=== PATIENT | female | born 1980 | race Caucasian/White ===

== ENCOUNTER 2016-08-19 06:38 | Inpatient (IN) | payer OTHER ==
[2016-08-19] MEDS ORDERED: OXYTOCIN/NORMAL SALINE 1,000 ML IV PRN ×2 (06:42→15:18)
[2016-08-19] MEDS ORDERED: RINGERS SOLUTION,LACTATED 300 ML IV ONE (06:42)
[2016-08-19 07:20] LABS: ABSOLUTE EOSINOPHILS # (AUTO) 0.1 10^3/uL (0.0-0.6); ABSOLUTE LYMPHOCYTES (AUTO) 1.3 10^3/uL (0.5-4.7); ABSOLUTE MONOCYTES (AUTO) 0.5 10^3/uL (0.1-1.4); ABSOLUTE NEUT (AUTO) 7.5 10^3/uL (1.7-8.2); BASOPHILS % (AUTO) 0.3 % (0-2); HEMATOCRIT 38.5 % (36.0-47.0); HGB HCT DIFFERENCE 0.5; LYMPHOCYTES % (AUTO) 13.5 % (13-45); MEAN CORPUSCULAR HEMOGLOBIN 31.3 pg (27.0-33.4); MEAN CORPUSCULAR HGB CONC 33.8 g/dL (32.0-36.0); MEAN CORPUSCULAR VOLUME 93 fl (80-97); MONOCYTES % (AUTO) 4.9 % (3-13); RED BLOOD COUNT 4.16 10^6/uL (3.72-5.28); RED CELL DISTRIBUTION WIDTH 14.4 % (11.5-14.0); SEGMENTED NEUTROPHILS % (AUTO) 80.3 % (42-78); WHITE BLOOD COUNT 9.3 10^3/uL (4.0-10.5)
[2016-08-19 07:40] LABS: ALANINE AMINOTRANSFERASE 25 U/L (9-52); ALBUMIN 3.4 g/dL (3.5-5.0); ALKALINE PHOSPHATASE 121 U/L (38-126); ANION GAP 10 (5-19); ASPARTATE AMINO TRANSFERASE 26 U/L (14-36); BILIRUBIN,TOTAL 0.9 mg/dL (0.2-1.3); BLOOD UREA NITROGEN 9 mg/dL (7-20); CALCIUM 9.7 mg/dL (8.4-10.2); CARBON DIOXIDE 25 mmol/L (22-30); CHLORIDE 104 mmol/L (98-107); CREATININE RESULT 0.74 mg/dL (0.52-1.25); GLUCOSE 90 mg/dL (75-110); LDH 358 U/L (313-618); POTASSIUM 3.9 mmol/L (3.6-5.0); SODIUM 138.5 mmol/L (137-145); TOTAL PROTEIN 5.8 g/dL (6.3-8.2); URIC ACID 3.6 mg/dL (2.5-7.0)
[2016-08-19] MEDS ORDERED: OXYTOCIN/NORMAL SALINE 20 UNIT/1,000 ML RTUINJ ONE (07:59)
--- NOTE | 2016-08-19 08:01 | L&D Flow Sheet ---
LD Flowsheet Datetime Report Generated by CPN: 08/19/2016 08:00 Datetime: 08/19/2016 07:45 Patient Care IV/Blood Work: IV Started; IV Bolus Started ([place] [place], [facility]) Datetime: 08/19/2016 07:44 Vaginal Exam Dilatation (cm): 2.5 (Kym Camp, [facility]) Effacement (%): 50 (Kym Camp, [facility]) Station: -1 (Kym Camp, [facility]) Exam by: Camp, S (Kym Camp, [facility]) Vaginal Bleeding: None (Kym Camp, [facility]) Cervix, Consistency: Soft (Kym Camp, [facility]) Cervix, Position: Midposition (Kym Camp, [facility]) Lie 'A': Unable to Assess (Kym [facility], [facility]) Datetime: 08/19/2016 07:31 Vital Signs NBP Sys/Radha/Mean (mmHg): 123 (QS system process) : 72 (QS system process) : 93 (QS system process) Pulse: 102 (QS system process) Datetime: 08/19/2016 07:24 Pulse: 97 (QS system process) SpO2 (%): 99 (QS system process) Datetime: 08/19/2016 07:22 Vital Signs NBP Sys/Radha/Mean (mmHg): 122 (QS system process) : 69 (QS system process) : 90 (QS system process) Pulse: 93 (QS system process) Assessment A Comments: maternal heart rate tracing, pulse ox applied and u/s adjusted (Kym [facility], [facility])
[2016-08-19 08:33] LABS: APPEARANCE,URINE CLOUDY; BILIRUBIN,URINE NEGATIVE (NEGATIVE); GLUCOSE, URINE 50 mg/dL (NEGATIVE); KETONES,URINE NEGATIVE (NEGATIVE); LEUKOCYTE ESTERASE,URINE TRACE (NEGATIVE); NITRITE,URINE NEGATIVE (NEGATIVE); PROTEIN,URINE NEGATIVE (NEGATIVE); URINE SPECIFIC GRAVITY 1.011; UROBILINOGEN,URINE NEGATIVE mg/dL (<2.0)
[2016-08-19 08:50] LABS: URINE BARBITURATES SCREEN NEGATIVE; URINE METHADONE SCREEN NEGATIVE; URINE OPIATES LOW NEGATIVE; URINE PHENCYCLIDINE SCREEN NEGATIVE
[2016-08-19] MEDS: RINGERS SOLUTION,LACTATED 1,000 ML IV PRN ×3 (09:42→13:11)
--- NOTE | 2016-08-19 10:00 | L&D Flow Sheet ---
LD Flowsheet Datetime Report Generated by CPN: 08/19/2016 10:00 Datetime: 08/19/2016 09:45 Pitocin (milliunit): Pitocin Increased to (milliunits) @ 14 ([facility], [facility]) Datetime: 08/19/2016 09:42 IV/Blood Work: New IV Bag Hung; IV Bag Number @ 2 (Kym Camp, [facility]) Patient Care Comments: LR 1000 ml @ 125ml/hr (Kym Camp, [facility]) Datetime: 08/19/2016 09:32 NBP Sys/Radha/Mean (mmHg): 140 (QS system process) : 76 (QS system process) : 102 (QS system process) Pulse: 81 (QS system process) Respirations: 16 ([facility]ym [facility], [facility]) LaborFlag: Labor (QS system process) Datetime: 08/19/2016 09:30 Monitor Mode: External; Palpation (Kym [facility], [facility]) Frequency (min): 4-5 ([facility]ym [facility], [facility]) Quality: Mild (Kym [facility], [facility]) Duration (sec): 50-70 (Kym Camp, [facility]) Duration Criteria: Less than Two 120 Second Contractions (Kym Camp, [facility]) Pattern: Normal: <= 5 Contractions in 10 Minutes (Kym [facility], [facility]) Resting Tone (Palpate): Relaxed (Kym [facility], [facility]) Monitor Mode: External US; Auscultation ([facility]ym [facility], [facility]) FHR Baseline Rate : 140 ([facility]ym [facility], [facility]) FHR Baseline Changes: No Baseline Change ([facility]ym [facility], [facility]) Variability: Moderate 6-25 bpm (Kym [facility], [facility]) Accelerations: 15X15 ([facility]ym [facility], [facility]) Decelerations: None ([facility]ym [facility], [facility]) Pitocin (milliunit): Pitocin Increased to (milliunits) @ 12 (Kym Camp, [facility]) Datetime: 08/19/2016 09:21 Monitor Interventions for UA: [place] Adjusted (Kym Camp, [facility]) Datetime: 08/19/2016 09:16 Hygiene: Amanda Care; Underpad Changed (Kym Camp, [facility]) Datetime: 08/19/2016 09:15 Monitor Mode: External; Palpation ([facility]ym [facility], [facility]) Frequency (min): 3-4 ([facility]ym [facility], [facility]) Quality: Mild (Kym [facility], [facility]) Duration (sec): 60-100 (Kym [facility], [facility]) Duration Criteria: Less than Two 120 Second Contractions (Kym [facility], [facility]) Pattern: Normal: <= 5 Contractions in 10 Minutes ([facility]ym [facility], [facility]) Resting Tone (Palpate): Relaxed (Kym Camp, [facility]) Monitor Mode: External US; Auscultation (Kym [facility], [facility]) FHR Baseline Rate : 145 (Kym Camp, [facility]) FHR Baseline Changes: No Baseline Change (Kym [facility], [facility]) Variability: Moderate 6-25 bpm ([facility], [facility]) Accelerations: 15X15 ([facility]ym [facility], [facility]) Decelerations: None ([facility]ym [facility], [facility]) Pitocin (milliunit): Pitocin Increased to (milliunits) @ 10 (Kym Camp, [facility]) I/O Interventions: Up to BR (Kym [facility], [facility]) Datetime: 08/19/2016 09:02 NBP Sys/Radha/Mean (mmHg): 141 (QS system process) : 80 (QS system process) : 104 (QS system process) Pulse: 83 (QS system process) Respirations: 16 (Kym Camp, [facility]) LaborFlag: Labor (QS system process) Datetime: 08/19/2016 09:00 Monitor Mode: External; Palpation ([facility]ym [facility], [facility]) Frequency (min): 3-4 ([facility]ym [facility], [facility]) Quality: Mild (Kym [facility], [facility]) Duration (sec): 80-100 (Kym [facility], [facility]) Pattern: Normal: <= 5 Contractions in 10 Minutes ([facility]ym [facility], [facility]) Resting Tone (Palpate): Relaxed ([facility], [facility]) Monitor Mode: External US; Auscultation ([facility]ym [facility], [facility]) FHR Baseline Rate : 135 (Kym Camp, [facility]) FHR Baseline Changes: No Baseline Change (Kym [facility], [facility]) Variability: Moderate 6-25 bpm ([facility]ym [facility], [facility]) Accelerations: 15X15 ([facility]ym [facility], [facility]) Decelerations: None ([facility]ym [facility], [facility]) Pain Scale: 0 (Kym Camp, [facility]) Pain Presence: None/Denies ([facility]ym [facility], [facility]) Pain Type: N/A (Kym [facility], [facility]) Pitocin (milliunit): Pitocin Increased to (milliunits) @ 8 ([facility]ym [facility], [facility]) Comfort Measures: Rocking Chair (Kym Camp, [facility]) LaborFlag: Labor (QS system process) Datetime: 08/19/2016 08:48 Patient Position/Activity: Tailors (Kym Camp, [facility]) Datetime: 08/19/2016 08:45 Monitor Mode: External; Palpation (Kym [facility], [facility]) Frequency (min): 2-4 ([facility]ym [facility], [facility]) Quality: Mild (Kym [facility], [facility]) Duration (sec): 60-80 (Kym [facility], [facility]) Duration Criteria: Less than Two 120 Second Contractions (Kym Camp, [facility]) Pattern: Normal: <= 5 Contractions in 10 Minutes ([facility]ym [facility], [facility]) Resting Tone (Palpate): Relaxed (Kym [facility], [facility]) Monitor Mode: External US; Auscultation ([place] [facility], [facility]) FHR Baseline Rate : 140 (Kym Camp, [facility]) FHR Baseline Changes: No Baseline Change (Kym Camp, [facility]) Variability: Moderate 6-25 bpm (Kym Camp, [facility]) Accelerations: 15X15 ([facility]ym [facility], [facility]) Decelerations: None (Kym Camp, [facility]) Datetime: 08/19/2016 08:44 Dilatation (cm): 3.0 ([place] [place], [facility]) Effacement (%): 70 ([facility] [place], [facility]) Station: -1 ([facility], [facility]) Exam by: Leo Wood ([facility], [facility]) Membrane Status: Ruptured ([facility], [facility]) Membranes Rupture Method: Spontaneous ([facility] [place], [facility]) Amniotic Fluid Color: Clear (Kym [facility], [facility]) Amniotic Fluid Amount: Moderate (Kym Camp, [facility]) Amniotic Fluid Odor: Normal ([facility] [place], RN) Vaginal Bleeding: None ([facility] [place], [facility]) Cervix, Consistency: Soft ([facility] [place], RN) Cervix, Position: Midposition ([facility], [facility]) Datetime: 08/19/2016 08:42 Provider Reviewed Strip: Yes ([facility], [facility]) Communication: RN at Bedside; Provider at Bedside ([facility]) Communication Comments: Leo Wood CNM present at bedside, chart, labs and vs reviewed. Discussed plan to proceed with ROM and Pitocin Induction ([facility], [facility]) Datetime: 08/19/2016 08:35 NBP Sys/Radha/Mean (mmHg): 144 (QS system process) : 63 (QS system process) : 91 (QS system process) Pulse: 97 (QS system process) LaborFlag: Labor (QS system process) Datetime: 08/19/2016 08:31 NBP Sys/Radha/Mean (mmHg): 153 (QS system process) : 80 (QS system process) : 110 (QS system process) Pulse: 84 (QS system process) LaborFlag: Labor (QS system process) Datetime: 08/19/2016 08:30 Monitor Mode: External; Palpation (Kym [facility], [facility]) Frequency (min): 4-5 (Kym Camp, [facility]) Quality: Mild (Kym Camp, [facility]) Duration (sec): 60-80 (Kym Camp, [facility]) Duration Criteria: Less than Two 120 Second Contractions (Kym Camp, [facility]) Pattern: Normal: <= 5 Contractions in 10 Minutes (Kym Camp, [facility]) Resting Tone (Palpate): Relaxed (Kym Camp, [facility]) Monitor Mode: External US; Auscultation (Kym Camp, [facility]) FHR Baseline Rate : 145 (Kym Camp, [facility]) FHR Baseline Changes: No Baseline Change (Kym [facility], [facility]) Variability: Moderate 6-25 bpm (Kym [facility], [facility]) Accelerations: 15X15 (Kym Camp, [facility]) Decelerations: None (Kym Camp, [facility]) Pitocin (milliunit): Pitocin Increased to (milliunits) @ 4 (Kym Camp, [facility]) Datetime: 08/19/2016 08:15 Monitor Mode: External; Palpation (Kym Camp, [facility]) Frequency (min): 5-6 (Kym Camp, [facility]) Quality: Mild (Kym Camp, [facility]) Duration (sec): 60-80 (Kym Camp, [facility]) Duration Criteria: Less than Two 120 Second Contractions (Kym [facility], [facility]) Pattern: Normal: <= 5 Contractions in 10 Minutes ([facility], [facility]) Resting Tone (Palpate): Relaxed (Kym [facility], [facility]) Monitor Mode: External US; Auscultation ([facility]ym [facility], [facility]) FHR Baseline Rate : 145 ([facility], [facility]) FHR Baseline Changes: No Baseline Change (Kym Camp, [facility]) Variability: Moderate 6-25 bpm (Kym Camp, [facility]) Accelerations: 15X15 (Kym Camp, [facility]) Decelerations: None (Kym Camp, [facility]) Datetime: 08/19/2016 08:02 NBP Sys/Radha/Mean (mmHg): 130 (QS system process) : 75 (QS system process) : 97 (QS system process) Pulse: 97 (QS system process) Respirations: 16 ([facility]) LaborFlag: Labor (QS system process)
--- NOTE | 2016-08-19 12:00 | L&D Flow Sheet ---
LD Flowsheet Datetime Report Generated by CPN: 08/19/2016 12:00 Datetime: 08/19/2016 11:49 Hygiene: Amanda Care; Underpad Changed (Kym Camp, [facility]) Datetime: 08/19/2016 11:48 Patient Care Comments: to rocking chair (Kym Camp, [facility]) Datetime: 08/19/2016 11:46 Patient Care Comments: Repositioned to rocking chair (Kym Camp, [facility]) Datetime: 08/19/2016 11:45 Pitocin (milliunit): Pitocin Increased to (milliunits) @ 12 (Kym Camp, [facility]) Communication: RN at Bedside; RN Reviewed Strip (Kym Camp, [facility]) Datetime: 08/19/2016 11:42 I/O Interventions: Up to BR (Kym Camp, [facility]) Datetime: 08/19/2016 11:32 NBP Sys/Radha/Mean (mmHg): 142 (QS system process) : 76 (QS system process) : 103 (QS system process) Pulse: 70 (QS system process) Respirations: 16 (Kym Camp, [facility]) LaborFlag: Labor (QS system process) Datetime: 08/19/2016 11:30 Monitor Mode: External; Palpation (Kym Camp, [facility]) Frequency (min): 2-3 (Kym Camp, [facility]) Quality: Mild/Moderate ([facility]ym Camp, [facility]) Duration (sec): 70-90 ([facility]ym [facility], [facility]) Duration Criteria: Less than Two 120 Second Contractions ([facility], [facility]) Pattern: Normal: <= 5 Contractions in 10 Minutes ([facility]ym [facility], [facility]) Resting Tone (Palpate): Relaxed (Kym Camp, [facility]) Monitor Mode: External US; Auscultation (Kym Camp, [facility]) FHR Baseline Rate : 140 (Kym Camp, [facility]) FHR Baseline Changes: No Baseline Change (Kym Camp, [facility]) Variability: Moderate 6-25 bpm ([facility]ym Camp, [facility]) Accelerations: 15X15 (Kym Camp, [facility]) Decelerations: None (Kym Camp, [facility]) Pitocin (milliunit): Pitocin Remains (milliunits) @ 10 (Kym Camp, [facility]) Datetime: 08/19/2016 11:14 Monitor Mode: External; Palpation (Kym Camp, [facility]) Frequency (min): 2-3 ([facility], [facility]) Quality: Mild/Moderate ([facility], [facility]) Duration (sec): 50-90 ([facility], [facility]) Duration Criteria: Less than Two 120 Second Contractions (Kym Camp, [facility]) Pattern: Normal: <= 5 Contractions in 10 Minutes ([facility], [facility]) Resting Tone (Palpate): Relaxed ([facility], [facility]) Monitor Mode: External US; Auscultation ([facility]ym Camp, [facility]) FHR Baseline Rate : 135 ([facility]ym Camp, [facility]) FHR Baseline Changes: No Baseline Change ([facility], [facility]) Variability: Moderate 6-25 bpm ([facility], [facility]) Decelerations: Variable ([facility]ym Camp, [facility]) Datetime: 08/19/2016 11:01 NBP Sys/Radha/Mean (mmHg): 128 (QS system process) : 71 (QS system process) : 95 (QS system process) Pulse: 71 (QS system process) Respirations: 17 (Kym Camp, [facility]) LaborFlag: Labor (QS system process) Datetime: 08/19/2016 11:00 Monitor Mode: External; Palpation (Kym [facility], [facility]) Frequency (min): 3-5 ([facility]ym Camp, [facility]) Quality: Mild/Moderate ([facility]ym Camp, [facility]) Duration (sec): 60-80 ([facility], [facility]) Duration Criteria: Less than Two 120 Second Contractions ([facility], [facility]) Pattern: Normal: <= 5 Contractions in 10 Minutes ([facility], [facility]) Resting Tone (Palpate): Relaxed (Kym Camp, [facility]) Monitor Mode: External US; Auscultation ([facility]ym [facility], [facility]) FHR Baseline Rate : 135 (Kym Camp, [facility]) FHR Baseline Changes: No Baseline Change ([facility]ym Camp, [facility]) Variability: Moderate 6-25 bpm ([facility] Camp, [facility]) Decelerations: Early ([facility], [facility]) Pitocin (milliunit): Pitocin Decreased to (milliunits) @ 10 (Kym Camp, [facility]) Teaching Comments: Reviewed plan for Pitocin decrease (Kym Camp, [facility]) Datetime: 08/19/2016 10:58 Communication Comments: A Farzanamikaela CNM given phone report of contraction pattern with contractions spacing and informed of Pitocin max of 20 milliunits. Plan discussed and order received to decrease Pitocin to 10 milliunits for 30 minutes then begin increasing every 15 minutes as ordered ([facility]ym Camp, [facility]) Datetime: 08/19/2016 10:44 Monitor Mode: External; Palpation ([facility], [facility]) Frequency (min): 2-3 ([facility], [facility]) Quality: Mild/Moderate ([facility]ym [facility], [facility]) Duration (sec): 60-90 ([facility]ym [facility], [facility]) Duration Criteria: Less than Two 120 Second Contractions ([facility]ym [facility], [facility]) Pattern: Normal: <= 5 Contractions in 10 Minutes ([facility], [facility]) Resting Tone (Palpate): Relaxed (Kym Camp, [facility]) Monitor Mode: External US; Auscultation (Kym Camp, [facility]) FHR Baseline Rate : 145 ([facility]ym [facility], [facility]) FHR Baseline Changes: No Baseline Change (Kym Camp, [facility]) Variability: Moderate 6-25 bpm ([facility]ym [facility], [facility]) Accelerations: 15X15 ([facility]ym Camp, [facility]) Decelerations: Early ([facility], [facility]) Pain Scale: 1 (Kym Camp, [facility]) Pain Presence: Intermittent (Kym Camp, [facility]) Pain Type: Cramping ([facility], [facility]) Pain Location: Abdomen ([facility], [facility]) Pain Coping: Declines Medication or Epidural ([facility], [facility]) Pitocin (milliunit): Pitocin Remains (milliunits) @ 20 ([facility], [facility]) Comfort Measures: Family Support ([facility], [facility]) LaborFlag: Labor (QS system process) Datetime: 08/19/2016 10:33 Patient Position/Activity: Birthing Ball ([facility], [facility]) Patient Care Comments: Repositioned to birthing ball, toco and u/s adjusted ([facility], [facility]) Datetime: 08/19/2016 10:31 NBP Sys/Radha/Mean (mmHg): 143 (QS system process) : 79 (QS system process) : 105 (QS system process) Pulse: 75 (QS system process) Respirations: 16 ([facility]ym [place], [facility]) LaborFlag: Labor (QS system process) Datetime: 08/19/2016 10:30 Pitocin (milliunit): Pitocin Increased to (milliunits) @ 20 ([facility], [facility]) Pitocin (milliunit): Pitocin Increased to (milliunits) @ (Annotations: 20) ([facility], [facility]) Communication: RN at Bedside; RN Reviewed Strip ([facility], [facility]) Datetime: 08/19/2016 10:29 Communication: RN at Bedside; RN Reviewed Strip ([facility], [facility]) Datetime: 08/19/2016 10:26 I/O Interventions: Up to BR ([facility], [facility]) Datetime: 08/19/2016 10:15 Monitor Mode: External; Palpation ([facility], [facility]) Frequency (min): 3-4 ([facility], [facility]) Quality: Mild/Moderate ([facility], [facility]) Duration (sec): 60-90 ([facility], [facility]) Duration Criteria: Less than Two 120 Second Contractions ([facility], [facility]) Pattern: Normal: <= 5 Contractions in 10 Minutes ([facility], [facility]) Resting Tone (Palpate): Relaxed ([facility], [facility]) Monitor Mode: External US; Auscultation ([facility], [facility]) FHR Baseline Rate : 140 ([facility], [facility]) FHR Baseline Changes: No Baseline Change ([facility], [facility]) Variability: Moderate 6-25 bpm ([facility], [facility]) Accelerations: 15X15 ([facility], [facility]) Decelerations: None ([facility], [facility]) Pitocin (milliunit): Pitocin Increased to (milliunits) @ (Annotations: 18) ([facility], [facility]) Datetime: 08/19/2016 10:02 NBP Sys/Radha/Mean (mmHg): 128 (QS system process) : 74 (QS system process) : 96 (QS system process) Pulse: 81 (QS system process) Respirations: 16 ([facility], [facility]) Temperature (F): 98.2 ([facility], [facility]) Temperature (C): 36.8 (QS system process) Temperature Route: Oral ([facility], [facility]) LaborFlag: Labor (QS system process) Datetime: 08/19/2016 10:00 Monitor Mode: External; Palpation ([facility], [facility]) Frequency (min): 3-4 ([facility], [facility]) Quality: Mild/Moderate ([facility], [facility]) Duration (sec): 70-90 ([facility], [facility]) Duration Criteria: Less than Two 120 Second Contractions ([facility], [facility]) Pattern: Normal: <= 5 Contractions in 10 Minutes ([facility], [facility]) Resting Tone (Palpate): Relaxed ([facility], [facility]) Monitor Mode: External US; Auscultation ([facility], [facility]) FHR Baseline Rate : 135 ([facility], [facility]) FHR Baseline Changes: No Baseline Change ([facility], [facility]) Variability: Moderate 6-25 bpm ([facility], [facility]) Accelerations: 15X15 ([facility], [facility]) Decelerations: None ([facility], [facility]) Pitocin (milliunit): Pitocin Increased to (milliunits) @ 16 ([facility], [facility])
[2016-08-19] MEDS ORDERED: MISOPROSTOL 0.2 MG TABLET ONE (12:41)
[2016-08-19] MEDS ORDERED: PHENYLEPHRINE HCL INJ/PF 10 MG/1 ML SDV ONE (12:42)
[2016-08-19] MEDS ORDERED: EPHEDRINE SULFATE INJ 50 MG/1 ML AMPULE ONE (12:42)
[2016-08-19] MEDS ORDERED: FENTANYL CITRATE INJ/PF 100 MCG/2 ML AMPUL ONE (12:42)
[2016-08-19] MEDS ORDERED: FENTANYL/BUPIVACAINE/NS/PF 200 MCG/100 ML RTUINJ EPI ONE (12:43)
[2016-08-19] MEDS ORDERED: LIDOCAINE 1% INJ-PF (10 MG/ML) 30 ML SDV ONE (12:43)
[2016-08-19] MEDS ORDERED: BUPIVACAINE HCL 0.25 % INJ/PF (2.5 MG/1 ML) 30 ML VIAL ONE (12:43)
[2016-08-19] MEDS ORDERED: BENZOIN/ALOE VERA/STORAX/TOLU TINCTURE 60 ML TP PRN (12:48)
[2016-08-19] MEDS ORDERED: FENTANYL/BUPIVACAINE/NS/PF 100 ML EPI PRN (12:48)
[2016-08-19] MEDS ORDERED: BUPIVACAINE HCL/NS/PF 100 ML EPI PRN (12:48)
[2016-08-19] MEDS ORDERED: BUPIVACAINE HCL 0.25 % INJ/PF (2.5 MG/1 ML) 30 ML VIAL INFIL ONE (12:48)
--- NOTE | 2016-08-19 14:00 | L&D Flow Sheet ---
LD Flowsheet Datetime Report Generated by CPN: 08/19/2016 14:00 Datetime: 08/19/2016 13:54 NBP Sys/Radha/Mean (mmHg): 141 (QS system process) : 70 (QS system process) : 99 (QS system process) Pulse: 73 (QS system process) LaborFlag: Labor (QS system process) Datetime: 08/19/2016 13:51 NBP Sys/Radha/Mean (mmHg): 135 (QS system process) : 64 (QS system process) : 92 (QS system process) Pulse: 71 (QS system process) LaborFlag: Labor (QS system process) Datetime: 08/19/2016 13:46 NBP Sys/Radha/Mean (mmHg): 136 (QS system process) : 65 (QS system process) : 93 (QS system process) Pulse: 68 (QS system process) LaborFlag: Labor (QS system process) Datetime: 08/19/2016 13:45 Monitor Mode: External; Palpation (Kym Camp, RNC) Frequency (min): 2-3 (Kym Camp, RNC) Quality: Moderate (Kym Camp, RNC) Duration (sec): 50-80 (Kym Camp, RNC) Duration Criteria: Less than Two 120 Second Contractions (Kym Camp, RNC) Pattern: Normal: <= 5 Contractions in 10 Minutes (Kym Camp, RNC) Resting Tone (Palpate): Relaxed (Kym Camp, RNC) Monitor Mode: External US; Auscultation (Kym Camp, RNC) FHR Baseline Rate : 130 (Kym Camp, RNC) FHR Baseline Changes: No Baseline Change (Kym Camp, RNC) Variability: Moderate 6-25 bpm (Kym Camp, RNC) Decelerations: Early; Variable (Kym Camp, RNC) Datetime: 08/19/2016 13:43 Monitor Interventions for UA: [place] Adjusted (Kym Camp, RNC) Monitor Interventions for FHR: Ultrasound Adjusted (Kym Camp, RNC) Patient Position/Activity: Left Lateral; Peanut Ball (Kym Camp, RNC) Datetime: 08/19/2016 13:39 NBP Sys/Radha/Mean (mmHg): 132 (QS system process) : 72 (QS system process) : 95 (QS system process) Pulse: 96 (QS system process) LaborFlag: Labor (QS system process) Datetime: 08/19/2016 13:34 NBP Sys/Radha/Mean (mmHg): 132 (QS system process) : 66 (QS system process) : 92 (QS system process) Pulse: 89 (QS system process) LaborFlag: Labor (QS system process) Datetime: 08/19/2016 13:31 NBP Sys/Radha/Mean (mmHg): 136 (QS system process) : 72 (QS system process) : 96 (QS system process) Pulse: 80 (QS system process) Respirations: 17 (Kym Camp, RNC) LaborFlag: Labor (QS system process) Datetime: 08/19/2016 13:30 Monitor Mode: External; Palpation (Kym Camp, RNC) Monitor Interventions for UA: [place] Adjusted (Kym Camp, RNC) Frequency (min): 1.5-2 (Kym Camp, RNC) Quality: Moderate (Kym Camp, RNC) Duration (sec): 60-80 (Kym Camp, RNC) Duration Criteria: Less than Two 120 Second Contractions (Kym Camp, RNC) Pattern: Normal: <= 5 Contractions in 10 Minutes (Kym Camp, RNC) Resting Tone (Palpate): Relaxed (Kym Camp, RNC) Monitor Mode: External US; Auscultation (Kym Camp, RNC) FHR Baseline Rate : 135 (Kym Camp, RNC) FHR Baseline Changes: No Baseline Change (Kym Camp, RNC) Variability: Moderate 6-25 bpm (Kym Camp, RNC) Accelerations: 15X15 (Kym Camp, RNC) Decelerations: Early; Variable (Kym Camp, RNC) Pitocin (milliunit): Pitocin Remains (milliunits) @ 18 (Kym Camp, RNC) Datetime: 08/19/2016 13:26 NBP Sys/Radha/Mean (mmHg): 122 (QS system process) : 71 (QS system process) : 91 (QS system process) Pulse: 82 (QS system process) LaborFlag: Labor (QS system process) Datetime: 08/19/2016 13:20 NBP Sys/Radha/Mean (mmHg): 128 (QS system process) : 67 (QS system process) : 89 (QS system process) Pulse: 82 (QS system process) Communication: Report Given to @ Michael Wood CN (Kym Camp, RNC) Communication Comments: Notified of change in cervix 5.5/80/0 and early decels noted (Kym Camp, RNC) LaborFlag: Labor (QS system process) Datetime: 08/19/2016 13:17 Monitor Interventions for UA: [place] Adjusted (Kym Camp, RNC) Monitor Interventions for FHR: Ultrasound Adjusted (Kym Camp, RNC) Patient Position/Activity: HOB Lowered; Right Tilt (Kym Camp, RNC) Datetime: 08/19/2016 13:15 NBP Sys/Radha/Mean (mmHg): 137 (QS system process) : 87 (QS system process) : 106 (QS system process) Pulse: 79 (QS system process) Respirations: 16 (Kym Camp, RNC) Monitor Mode: External; Palpation (Kym Camp, RNC) Frequency (min): 2-2.5 (Kym Camp, RNC) Quality: Moderate (Kym Camp, RNC) Duration (sec): 60-90 (Kym Camp, RNC) Duration Criteria: Less than Two 120 Second Contractions (Kym Camp, RNC) Pattern: Normal: <= 5 Contractions in 10 Minutes (Kym Camp, RNC) Resting Tone (Palpate): Relaxed (Kym Camp, RNC) Monitor Mode: External US; Auscultation (Kym Camp, RNC) FHR Baseline Rate : 135 (Kym Camp, RNC) FHR Baseline Changes: No Baseline Change (Kym Camp, RNC) Variability: Moderate 6-25 bpm (Kym Camp, RNC) Accelerations: 15X15 (Kym Camp, RNC) Decelerations: Early (Kym Camp, RNC) Dilatation (cm): 5.5 (Kym Camp, RNC) Effacement (%): 80 (Kym Camp, RNC) Station: 0 (Kym Camp, RNC) Exam by: Camp, S (Kym Camp, RNC) Vaginal Bleeding: None (Kym Camp, RNC) Cervix, Consistency: Soft (Kym Camp, RNC) Cervix, Position: Anterior (Kym Camp, RNC) LaborFlag: Labor (QS system process) Datetime: 08/19/2016 13:12 IV/Blood Work: IV Bolus Given ml @ 1000ml lr; New IV Bag Hung ([facility], RNC) Patient Care Comments: lr @ 125ml/hr (Kym Camp, RNC) Datetime: 08/19/2016 13:11 NBP Sys/Radha/Mean (mmHg): 137 (QS system process) : 80 (QS system process) : 102 (QS system process) Pulse: 84 (QS system process) LaborFlag: Labor (QS system process) Datetime: 08/19/2016 13:08 I/O Interventions: Ruiz Cath Inserted (Kym Camp, RNC) Patient Care Comments: 14fr ruiz placed draining clear yellow urine secured with cath secure to left interior thigh (Kym Camp, RNC) Datetime: 08/19/2016 13:05 NBP Sys/Radha/Mean (mmHg): 142 (QS system process) : 66 (QS system process) : 94 (QS system process) Pulse: 82 (QS system process) LaborFlag: Labor (QS system process) Datetime: 08/19/2016 13:04 NBP Sys/Radha/Mean (mmHg): 128 (QS system process) : 80 (QS system process) : 97 (QS system process) Pulse: 114 (QS system process) LaborFlag: Labor (QS system process) Datetime: 08/19/2016 13:03 NBP Sys/Radha/Mean (mmHg): 126 (QS system process) : 73 (QS system process) : 93 (QS system process) Pulse: 97 (QS system process) LaborFlag: Labor (QS system process) Datetime: 08/19/2016 13:01 NBP Sys/Radha/Mean (mmHg): 166 (QS system process) : 73 (QS system process) : 105 (QS system process) Pulse: 87 (QS system process) Respirations: 17 (Kym Camp, RNC) LaborFlag: Labor (QS system process) Datetime: 08/19/2016 13:00 Monitor Mode: External (Kym Camp, RNC) Monitor Interventions for UA: [place] Adjusted (Kym Camp, RNC) Frequency (min): 1.5-3 (Kym Camp, RNC) Quality: Moderate (Kym Camp, RNC) Duration (sec): 60-70 (Kym Camp, RNC) Duration Criteria: Less than Two 120 Second Contractions (Kym Camp, RNC) Pattern: Normal: <= 5 Contractions in 10 Minutes (Kym Camp, RNC) Resting Tone (Palpate): Relaxed (Kym Camp, RNC) Monitor Mode: External US; Auscultation (Kym Camp, RNC) FHR Baseline Rate : 135 (Kym Camp, RNC) FHR Baseline Changes: No Baseline Change (Kym Camp, RNC) Variability: Moderate 6-25 bpm (Kym Camp, RNC) Decelerations: Early (Kym Camp, RNC) Datetime: 08/19/2016 12:59 NBP Sys/Radha/Mean (mmHg): 156 (QS system process) : 73 (QS system process) : 107 (QS system process) Pulse: 93 (QS system process) Epidural Procedure: Loading Dose (Kym Camp, RNC) LaborFlag: Labor (QS system process) Datetime: 08/19/2016 12:58 NBP Sys/Radha/Mean (mmHg): 159 (QS system process) : 75 (QS system process) : 109 (QS system process) Pulse: 93 (QS system process) LaborFlag: Labor (QS system process) Datetime: 08/19/2016 12:57 Pulse: 89 (QS system process) SpO2 (%): 100 (QS system process) Anesthesia Plans: Local (Kym Camp, RNC) LaborFlag: Labor (QS system process) Datetime: 08/19/2016 12:52 Pulse: 96 (QS system process) SpO2 (%): 100 (QS system process) Procedure Verify: Correct Patient Identity; Correct Side and Site are Marked; Accurate Procedure Consent Form; Agreement on Procedure to be Done; Correct Patient Position; Safety Precautions Based on Patient History or Medication Use (Kym Camp, RNC) Epidural Positioning: Sitting (Ykm Camp, RNC) Anesthesia Comments: Dr Dyson at bedside (Kym Camp, RNC) Instructional Method: Demo; Verbal; Written (Kym Camp, RNC) Unit Routine: Consents Signed (Kym Camp, RNC) Pain Management: Epidural (Kym Camp, RNC) LaborFlag: Labor (QS system process) Datetime: 08/19/2016 12:50 NBP Sys/Radha/Mean (mmHg): 167 (QS system process) : 79 (QS system process) : 114 (QS system process) Pulse: 83 (QS system process) LaborFlag: Labor (QS system process) Datetime: 08/19/2016 12:47 Pulse: 80 (QS system process) Pulse: 79 (QS system process) SpO2 (%): 89 (QS system process) SpO2 (%): 91 (QS system process) LaborFlag: Labor (QS system process) Datetime: 08/19/2016 12:45 Monitor Mode: External; Palpation (Kym Camp, RNC) Frequency (min): 2-3 (Kym Camp, RNC) Quality: Moderate (Kym Camp, RNC) Duration (sec): 70-100 (Kym Camp, RNC) Duration Criteria: Less than Two 120 Second Contractions (Kym Camp, RNC) Pattern: Normal: <= 5 Contractions in 10 Minutes (Kym Camp, RNC) Resting Tone (Palpate): Relaxed (Kym Camp, RNC) Monitor Mode: External US; Auscultation (Kym Camp, RNC) FHR Baseline Rate : 135 (Kym Camp, RNC) FHR Baseline Changes: No Baseline Change (Kym Camp, RNC) Variability: Moderate 6-25 bpm (Kym Camp, RNC) Accelerations: 15X15 (Kym Camp, RNC) Decelerations: Early (Kym Camp, RNC) Datetime: 08/19/2016 12:43 Procedure Verify: Correct Patient Identity; Correct Side and Site are Marked; Agreement on Procedure to be Done; Safety Precautions Based on Patient History or Medication Use (Kym Camp, RNC) Epidural Positioning: Sitting (Kym Camp, RNC) Datetime: 08/19/2016 12:38 Communication: Provider Orders Received; Call/Page Placed to Provider (Kym Camp, RNC) Communication Comments: Emmel given phone report of increasing pain level and request for epidural. Order received (Kym Camp, RNC) Datetime: 08/19/2016 12:36 Pain Scale: 4 (Kym Camp, RNC) Pain Presence: Intermittent (Kym Camp, RNC) Pain Type: Contraction (Kym Camp, RNC) Pain Location: Abdomen; Back (Kym Camp, RNC) Pain Coping: Requesting Pain Medication or Epidural (Kym Camp, RNC) Pain Assessment Comments: requests epidural anesthesia (Kym Camp, RNC) Comfort Measures: Breathing/Relaxation; Rocking Chair; Family Support (Kym Camp, RNC) LaborFlag: Labor (QS system process) Datetime: 08/19/2016 12:31 NBP Sys/Radha/Mean (mmHg): 145 (QS system process) : 77 (QS system process) : 105 (QS system process) Pulse: 89 (QS system process) LaborFlag: Labor (QS system process) Datetime: 08/19/2016 12:30 Monitor Mode: External; Palpation (Kym Camp, RNC) Frequency (min): 2-4 (Kym Camp, RNC) Quality: Moderate (Kym Camp, RNC) Duration (sec): 70-100 (Kym Camp, RNC) Duration Criteria: Less than Two 120 Second Contractions (Kym Camp, RNC) Pattern: Normal: <= 5 Contractions in 10 Minutes (Kym Camp, RNC) Resting Tone (Palpate): Relaxed (Kym Camp, RNC) Monitor Mode: External US; Auscultation (Kym Camp, RNC) FHR Baseline Rate : 130 (Kym Camp, RNC) FHR Baseline Changes: No Baseline Change (Kym Camp, RNC) Variability: Moderate 6-25 bpm (Kym Camp, RNC) Accelerations: 15X15 (Kym Camp, RNC) Decelerations: Early (Kym Camp, RNC) Datetime: 08/19/2016 12:15 Monitor Mode: External; Palpation (Kym Camp, RNC) Frequency (min): 1.5-4 (Kym Camp, RNC) Quality: Mild/Moderate (Kym Camp, RNC) Duration (sec): 70-100 (Kym Camp, RNC) Duration Criteria: Less than Two 120 Second Contractions (Kym Camp, RNC) Pattern: Normal: <= 5 Contractions in 10 Minutes (Kym Camp, RNC) Resting Tone (Palpate): Relaxed (Kym Camp, RNC) Monitor Mode: External US; Auscultation (Kym Camp, RNC) FHR Baseline Rate : 140 (Kym Camp, RNC) FHR Baseline Changes: No Baseline Change (Kym Camp, RNC) Variability: Minimal - Undetectable to <=5 bpm (Kym Camp, RNC) Accelerations: 15X15 (Kym Camp, RNC) Decelerations: Early (Kym Camp, RNC) Pitocin (milliunit): Pitocin Increased to (milliunits) @ (Annotations: 14) (Kym Camp, RNC) Datetime: 08/19/2016 12:02 NBP Sys/Radha/Mean (mmHg): 127 (QS system process) : 76 (QS system process) : 97 (QS system process) Pulse: 69 (QS system process) Temperature (F): 98.3 (Kym Camp, RNC) Temperature (C): 36.8 (QS system process) Temperature Route: Oral (Kym Camp, RNC) LaborFlag: Labor (QS system process) Datetime: 08/19/2016 12:00 Monitor Mode: External; Palpation (Kym Camp, RNC) Frequency (min): 2-3 (Kym Camp, RNC) Quality: Mild/Moderate (Kym Camp, RNC) Duration (sec): 60-90 (Kym Camp, RNC) Duration Criteria: Less than Two 120 Second Contractions (Kym Camp, RNC) Pattern: Normal: <= 5 Contractions in 10 Minutes (Kym Camp, RNC) Resting Tone (Palpate): Relaxed (Kym Camp, RNC) Monitor Mode: External US; Auscultation (Kym Camp, RNC) FHR Baseline Rate : 145 (Kym Camp, RNC) FHR Baseline Changes: No Baseline Change (Kym Camp, RNC) Variability: Moderate 6-25 bpm (Kym Camp, RNC) Accelerations: 15X15 (Kym Camp, RNC) Decelerations: Early (Kym Camp, RNC) Pitocin (milliunit): Pitocin Increased to (milliunits) @ 14 (Kym Camp, RNC)
[2016-08-19] MEDS ORDERED: MEASLES,MUMPS&RUBELLA VACC/PF 0.5 ML VIAL SUBCUT PRN (15:18)
[2016-08-19] MEDS ORDERED: ACETAMINOPHEN WITH CODEINE #3 TABLET PO PRN ×2 (15:18)
[2016-08-19] MEDS ORDERED: DIBUCAINE 1% OINTMENT 28 GM TP PRN (15:18)
[2016-08-19] MEDS ORDERED: DIPH/PERTUSS(ACELL)/TETANUS VAC/PF 0.5 ML SYR (>=10YO) IM PRN (15:18)
[2016-08-19] MEDS ORDERED: BENZOCAINE/MENTHOL AEROSOL SPRAY 56 ML TOP PRN (15:18)
[2016-08-19] MEDS ORDERED: ZOLPIDEM TARTRATE 5 MG TABLET PO PRN (15:18)
--- NOTE | 2016-08-19 16:00 | L&D Flow Sheet ---
LD Flowsheet Datetime Report Generated by CPN: 08/19/2016 16:00 Datetime: 08/19/2016 15:48 NBP Sys/Radha/Mean (mmHg): 135 (QS system process) : 67 (QS system process) : 93 (QS system process) Pulse: 75 (QS system process) Datetime: 08/19/2016 15:33 NBP Sys/Radha/Mean (mmHg): 136 (QS system process) : 66 (QS system process) : 93 (QS system process) Pulse: 90 (QS system process) Datetime: 08/19/2016 15:27 NBP Sys/Radha/Mean (mmHg): 140 (QS system process) : 67 (QS system process) : 96 (QS system process) Pulse: 90 (QS system process) Datetime: 08/19/2016 15:03 NBP Sys/Radha/Mean (mmHg): 122 (QS system process) : 92 (QS system process) : 100 (QS system process) Pulse: 96 (QS system process) Respirations: 16 ([facility], [facility]) Temperature (F): 98.6 ([facility], [facility]) Temperature (C): 37.0 (QS system process) Temperature Route: Oral ([facility], [facility]) Pain Scale: 1 ([facility], [facility]) Pain Presence: Intermittent ([facility], [facility]) Pain Type: Burning ([facility], [facility]) Pain Location: Perineum ([facility], [facility]) Pain Relief Measures: Comfort Measures (Annotations: ice pack to perineum) ([facility], [facility]) Pain Assessment Comments: no apparent distress noted (Kym Camp, RNC) Datetime: 08/19/2016 14:45 Stage of : Recovery (Kym Camp, RNC) Datetime: 08/19/2016 14:43 FHR Baseline Rate : 120 (Kym Camp, RNC) Stage 2 Comments: Delivery liveborn female, placed on maternal abdomendried and stimulated with strong lusty cry noted. Dried and placed skin to skin after cord clamped and cut by family member. (Kym Camp, RNC) Datetime: 08/19/2016 14:39 NBP Sys/Radha/Mean (mmHg): 146 (QS system process) : 71 (QS system process) : 101 (QS system process) Pulse: 117 (QS system process) Respirations: 16 (Kym Camp, RNC) LaborFlag: Labor (QS system process) Datetime: 08/19/2016 14:33 Instructional Method: Demo; Verbal; Patient Instructed; Family/Support Person Instructed; Verbalized Understanding (Kym Camp, RNC) Labor/Induction: Pushing Methods (Kym Camp, RNC) Preparation for Delivery: Perineal Prep Done; Setup for Delivery (Kym Camp, RNC) Stage 2 Comments: RN and provider Israel HANSON to remain at bedside throughout second stage continuously monitoring fhr while pushing with contractions (Kym Camp, RNC) Datetime: 08/19/2016 14:30 Pushing: Coached on Pushing (Kym Camp, RNC) Pushing Position: Pushing with Contractions (Kym Camp, RNC) Communication: RN at Bedside (Kym Camp, RNC) Datetime: 08/19/2016 14:24 Pain Scale: 2 (Kym Camp, RNC) Pain Presence: Constant (Kym Delmar, RNC) Pain Type: Pressure (Kym [place], RNC) Pain Location: Perineum ([facility], RNC) Dilatation (cm): 10.0 (Kym Camp, RNC) Effacement (%): 100 (Kym Camp, RNC) Station: 2 (Kym [place], RNC) Exam by: Leo Wood (Kym [place], RNC) Vaginal Bleeding: Normal Show (Kym Camp, RNC) Comfort Measures: Breathing/Relaxation; Family Support (Kym Camp, RNC) Pushing: Urge to Push (Kym Delmar, RNC) Communication: RN at Bedside; Provider at Bedside ([facility], RNC) LaborFlag: Labor (QS system process) Datetime: 08/19/2016 14:17 Patient Position/Activity: Peanut Ball; Right Extreme (Kym Camp, RNC) Datetime: 08/19/2016 14:15 Monitor Mode: External; Palpation (Kym Camp, RNC) Monitor Interventions for UA: [place] Adjusted (Kym Camp, RNC) Frequency (min): 1.5-3 (Kym Camp, RNC) Quality: Moderate (Kym Camp, RNC) Duration (sec): 60-80 (Kym Camp, RNC) Duration Criteria: Less than Two 120 Second Contractions (Kym Camp, RNC) Pattern: Normal: <= 5 Contractions in 10 Minutes (Kym Camp, RNC) Resting Tone (Palpate): Relaxed (Kym Camp, RNC) Monitor Mode: External US; Auscultation (Kym Camp, RNC) FHR Baseline Rate : 135 (Kym Camp, RNC) FHR Baseline Changes: No Baseline Change (Kym Camp, RNC) Variability: Moderate 6-25 bpm (Kym Camp, RNC) Decelerations: Early (Kym Camp, RNC) Pitocin (milliunit): Pitocin Remains (milliunits) @ 18 (Kym Camp, RNC) Datetime: 08/19/2016 14:09 NBP Sys/Radha/Mean (mmHg): 133 (QS system process) : 67 (QS system process) : 95 (QS system process) Pulse: 69 (QS system process) Respirations: 16 (Kym Camp, RNC) Temperature (F): 98.6 (Kym Camp, RNC) Temperature (C): 37.0 (QS system process) Temperature Route: Oral (Kym Camp, RNC) LaborFlag: Labor (QS system process) Datetime: 08/19/2016 14:00 Monitor Mode: External; Palpation (Kym Camp, RNC) Monitor Interventions for UA: [place] Adjusted (Kym Camp, RNC) Frequency (min): 2-3 (Kym Camp, RNC) Quality: Moderate (Kym Camp, RNC) Duration (sec): 50-90 (Kym Camp, RNC) Duration Criteria: Less than Two 120 Second Contractions (Kym Camp, RNC) Pattern: Normal: <= 5 Contractions in 10 Minutes (Kym Camp, RNC) Resting Tone (Palpate): Relaxed (Kym Camp, RNC) Monitor Mode: External US; Auscultation (Kym Camp, RNC) FHR Baseline Rate : 135 (Kym Camp, RNC) FHR Baseline Changes: No Baseline Change (Kym Camp, RNC) Variability: Minimal - Undetectable to <=5 bpm (Kym Camp, RNC) Decelerations: Early (Kym Camp, RNC) Pain Scale: 1 (Kym Camp, RNC) Pain Presence: Intermittent (Kym Camp, RNC) Pain Type: Pressure (Kym Camp, RNC) Pain Location: Perineum (Kym Camp, RNC) Pain Relief Measures: Epidural Given (Kym Camp, RNC) Pain Coping: Other (Annotations: unaware of contractions) (BERTRAM Vega) Pain Assessment Comments: resting comfortably without complaints (Kym Young, BERTRAM) Pitocin (milliunit): Pitocin Remains (milliunits) @ 18 (Kym Young, BERTRAM) Anesthesia Level Check: T10- Umbilicus (BERTRAM Vega) LaborFlag: Labor (QS system process)
[2016-08-19] MEDS ORDERED: IBUPROFEN 800 MG TABLET ONE (16:12)
--- NOTE | 2016-08-19 17:12 | Admission Physical ---
Datetime Report Generated by CPN: 08/19/2016 17:11 CURRENT ADMISSION Indication for Induction: Chronic Hypertension Admit Plan: Admit to Unit; Initiate Labor Induction Protocol ALLERGIES Medication Allergies: No Medication Allergies: No Known Allergies (08/19/2016) Latex: No Latex Allergies OBSTETRICAL HISTORY EDC: 08/21/2016 00:00 : 2 Para: 1 Term: 1 : 0 SAB: 0 IAB: 0 Ectopic: 0 Livin Cesareans: 0 VBACs: 0 Multiple Births: 0 Gestational Diabetes: No Rh Sensitization: No Incompetent Cervix: No AVA: No Infertility: No ART Treatment: No Uterine Anomaly: No IUGR: No Hx Previous C/S: No Macrosomia: No Hx Loss/Stillborn: No PIH: Yes Hx : No Placenta Previa/Abruption: No Depression/PP Depression: No PTL/PROM: No Post Hemorrhage: No Current Procedures: Ultrasound; NST Obstetrical History Comments: Denies complications, CHTN SEE RECORDS Alcohol: No Marijuana : No Cocaine: No Other Illicit Drugs: No Cigarettes: Never Smoker. [id number] MEDICAL HISTORY Diabetes: No Blood Transfusion: No Pulmonary Disease (Asthma, TB): No Breast Disease: No Hypertension: Yes Vascular Nurse Surgery: No Heart Disease: No Hosp/Surgery: Yes Autoimmune Disorder: No Anesthetic Complications: No Kidney Disease: No Abnormal Pap Smear: No Neuro/Epilepsy: No Psychiatric Disorders: No Other Medical Diseases: No Hepatitis/Liver Disease: No Significant Family History: No Varicosities/Phlebitis: No Trauma/Violence : No Thyroid Dysfunction: No Medical History Comments: CHTN on meds x 3 years INFECTIOUS HISTORY Gonorrhea: No Genital Herpes: No Chlamydia: No Tuberculosis: No Syphilis: No Hepatitis: No HIV/AIDS Exposure: No Rash or Viral Illness: No HPV: No PHYSICAL EXAM General: Normal HEENT: Normal Neurologic: Normal Thyroid: Normal Heart: Normal Lungs: Normal Breast: Normal Back: Normal Abdomen: Normal Genitourinary Exam: Normal Extremities: Normal DTRs: Normal Pelvic Type: Adequate Vital Signs: Reviewed VAGINAL EXAM Dilatation: 3 Effacement: 70 Station: -2 MEMBRANES Membranes: Ruptured FETUS A Monitoring: External US FHR- Baseline: 145 Decelerations: None Presentation: Vertex Admit Comment: 36 yo admitted for CHTN on aldomet 250 mg po qd EDC 08/21/16 EGA 39.5 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
[2016-08-19] MEDS: FERROUS SULFATE 325 MG TABLET PO SCH (17:52)
[2016-08-19] MEDS: DOCUSATE SODIUM 100 MG CAPSULE PO SCH (17:52)
--- NOTE | 2016-08-19 19:01 | L&D Flow Sheet ---
LD Flowsheet Datetime Report Generated by CPN: 08/19/2016 19:00 Datetime: 08/19/2016 16:48 NBP Sys/Radha/Mean (mmHg): 127 (QS system process) : 70 (QS system process) : 93 (QS system process) Pulse: 81 (QS system process) Pain Scale: 0 (Kym Camp, RNC) Pain Presence: None/Denies (Kym Camp, RNC) Pain Type: N/A (Kym Camp, RNC) Pain Relief Measures: Pain Medication Given; Comfort Measures (Kym Camp, RNC) Pain Assessment Comments: States pain has subsided since Po Motrin and ice Pack (Kym Camp, RNC) Datetime: 08/19/2016 16:33 NBP Sys/Radha/Mean (mmHg): 132 (QS system process) : 76 (QS system process) : 97 (QS system process) Pulse: 88 (QS system process) Datetime: 08/19/2016 16:18 NBP Sys/Radha/Mean (mmHg): 133 (QS system process) : 78 (QS system process) : 99 (QS system process) Pulse: 87 (QS system process) Datetime: 08/19/2016 16:03 NBP Sys/Radha/Mean (mmHg): 136 (QS system process) : 78 (QS system process) : 101 (QS system process) Pulse: 72 (QS system process) Respirations: 17 (Kym Camp, RNC) Datetime: 08/19/2016 15:48 NBP Sys/Radha/Mean (mmHg): 135 (QS system process) : 67 (QS system process) : 93 (QS system process) Pulse: 75 (QS system process) Respirations: 18 (Kym Camp, RNC) Datetime: 08/19/2016 15:33 NBP Sys/Radha/Mean (mmHg): 136 (QS system process) : 66 (QS system process) : 93 (QS system process) Pulse: 90 (QS system process) Datetime: 08/19/2016 15:27 NBP Sys/Radha/Mean (mmHg): 140 (QS system process) : 67 (QS system process) : 96 (QS system process) Pulse: 90 (QS system process) Respirations: 16 (Kym Camp, RNC) Datetime: 08/19/2016 15:03 NBP Sys/Radha/Mean (mmHg): 122 (QS system process) : 92 (QS system process) : 100 (QS system process) Pulse: 96 (QS system process) Respirations: 16 (Kym Camp, RNC) Temperature (F): 98.6 (Kym Camp, RNC) Temperature (C): 37.0 (QS system process) Temperature Route: Oral (Kym Camp, RNC) Pain Scale: 1 (Kym Camp, RNC) Pain Presence: Intermittent (Kym Camp, RNC) Pain Type: Burning (Kym Camp, RNC) Pain Location: Perineum (Kym Camp, RNC) Pain Relief Measures: Comfort Measures (Annotations: ice pack to perineum) (Kym Camp, RNC) Pain Assessment Comments: no apparent distress noted (Kym Camp, RNC) Datetime: 08/19/2016 14:45 Stage of : Recovery (Kym Camp, RNC) Datetime: 08/19/2016 14:43 FHR Baseline Rate : 120 (Kym Camp, RNC) Stage 2 Comments: Delivery liveborn female, placed on maternal abdomendried and stimulated with strong lusty cry noted. Dried and placed skin to skin after cord clamped and cut by family member. (Kym Camp, RNC) Datetime: 08/19/2016 14:39 NBP Sys/Radha/Mean (mmHg): 146 (QS system process) : 71 (QS system process) : 101 (QS system process) Pulse: 117 (QS system process) Respirations: 16 (Kym Camp, RNC) LaborFlag: Labor (QS system process) Datetime: 08/19/2016 14:33 Instructional Method: Demo; Verbal; Patient Instructed; Family/Support Person Instructed; Verbalized Understanding (Kym Camp, RNC) Labor/Induction: Pushing Methods (Kym Camp, RNC) Preparation for Delivery: Perineal Prep Done; Setup for Delivery (Kym Camp, RNC) Stage 2 Comments: RN and provider Emmel CNM to remain at bedside throughout second stage continuously monitoring fhr while pushing with contractions (Kym Camp, RNC) Datetime: 08/19/2016 14:30 Pushing: Coached on Pushing (Kym Camp, RNC) Pushing Position: Pushing with Contractions (Kym Camp, RNC) Communication: RN at Bedside (Kym Camp, RNC) Datetime: 08/19/2016 14:24 Pain Scale: 2 (Kym Camp, RNC) Pain Presence: Constant (Kym Camp, RNC) Pain Type: Pressure (Kym Young, RNC) Pain Location: Perineum (Kym Young, RNC) Dilatation (cm): 10.0 (Kym Young, RNC) Effacement (%): 100 (Kym Young, RNC) Station: 2 (Kym Young, RNC) Exam by: Leo Wood (Kym Young, RNC) Vaginal Bleeding: Normal Show (Kym Young, RNC) Comfort Measures: Breathing/Relaxation; Family Support (Kym Young, RNC) Pushing: Urge to Push (Kym Young, RNC) Communication: RN at Bedside; Provider at Bedside (Kym Young, RNC) LaborFlag: Labor (QS system process) Datetime: 08/19/2016 14:17 Patient Position/Activity: Peanut Ball; Right Extreme (Kym Young, RNC) Datetime: 08/19/2016 14:15 Monitor Mode: External; Palpation (Kym Young, RNC) Monitor Interventions for UA: Kemp Adjusted (Kym Young, RNC) Frequency (min): 1.5-3 (Kym Camp, RNC) Quality: Moderate (Kym Camp, RNC) Duration (sec): 60-80 (Kym Camp, RNC) Duration Criteria: Less than Two 120 Second Contractions (Kym Camp, RNC) Pattern: Normal: <= 5 Contractions in 10 Minutes (Kym Camp, RNC) Resting Tone (Palpate): Relaxed (Kym Camp, RNC) Monitor Mode: External US; Auscultation (Kym Camp, RNC) FHR Baseline Rate : 135 (Kym Camp, RNC) FHR Baseline Changes: No Baseline Change (Kym Camp, RNC) Variability: Moderate 6-25 bpm (Kym Camp, RNC) Decelerations: Early (Kym Camp, RNC) Pitocin (milliunit): Pitocin Remains (milliunits) @ 18 (Kym Camp, RNC) Datetime: 08/19/2016 14:09 NBP Sys/Radha/Mean (mmHg): 133 (QS system process) : 67 (QS system process) : 95 (QS system process) Pulse: 69 (QS system process) Respirations: 16 (Kym Camp, RNC) Temperature (F): 98.6 (Kym Camp, RNC) Temperature (C): 37.0 (QS system process) Temperature Route: Oral (Kym Camp, RNC) LaborFlag: Labor (QS system process) Datetime: 08/19/2016 14:00 Monitor Mode: External; Palpation (Kym Camp, RNC) Monitor Interventions for UA: Kemp Adjusted (Kym Camp, RNC) Frequency (min): 2-3 (Kym Camp, RNC) Quality: Moderate (Kym Camp, RNC) Duration (sec): 50-90 (Kym Camp, RNC) Duration Criteria: Less than Two 120 Second Contractions (Kym Camp, RNC) Pattern: Normal: <= 5 Contractions in 10 Minutes (Kym Camp, RNC) Resting Tone (Palpate): Relaxed (Kym Camp, RNC) Monitor Mode: External US; Auscultation (Kym Camp, RNC) FHR Baseline Rate : 135 (Kym Camp, RNC) FHR Baseline Changes: No Baseline Change (Kym Camp, RNC) Variability: Minimal - Undetectable to <=5 bpm (Kym Camp, RNC) Decelerations: Early (Kym Camp, RNC) Pain Scale: 1 (Kym Camp, RNC) Pain Presence: Intermittent (Kym Camp, RNC) Pain Type: Pressure (Kym Camp, RNC) Pain Location: Perineum (Kym Camp, RNC) Pain Relief Measures: Epidural Given (Kym Camp, RNC) Pain Coping: Other (Annotations: unaware of contractions) (Kym Camp, RNC) Pain Assessment Comments: resting comfortably without complaints (Kym Camp, RNC) Pitocin (milliunit): Pitocin Remains (milliunits) @ 18 (Kym Camp, RNC) Anesthesia Level Check: T10- Umbilicus (Kym Camp, RNC) LaborFlag: Labor (QS system process) Datetime: 08/19/2016 13:54 NBP Sys/Radha/Mean (mmHg): 141 (QS system process) : 70 (QS system process) : 99 (QS system process) Pulse: 73 (QS system process) LaborFlag: Labor (QS system process) Datetime: 08/19/2016 13:51 NBP Sys/Radha/Mean (mmHg): 135 (QS system process) : 64 (QS system process) : 92 (QS system process) Pulse: 71 (QS system process) LaborFlag: Labor (QS system process) Datetime: 08/19/2016 13:46 NBP Sys/Radha/Mean (mmHg): 136 (QS system process) : 65 (QS system process) : 93 (QS system process) Pulse: 68 (QS system process) LaborFlag: Labor (QS system process) Datetime: 08/19/2016 13:45 Monitor Mode: External; Palpation (Kym Camp, RNC) Frequency (min): 2-3 (Kym Camp, RNC) Quality: Moderate (Kym Camp, RNC) Duration (sec): 50-80 (Kym Camp, RNC) Duration Criteria: Less than Two 120 Second Contractions (Kym Camp, RNC) Pattern: Normal: <= 5 Contractions in 10 Minutes (Kym Camp, RNC) Resting Tone (Palpate): Relaxed (Kym Camp, RNC) Monitor Mode: External US; Auscultation (Kym Camp, RNC) FHR Baseline Rate : 130 (Kym Camp, RNC) FHR Baseline Changes: No Baseline Change (Kym Camp, RNC) Variability: Moderate 6-25 bpm (Kym Camp, RNC) Decelerations: Early; Variable (Kym Camp, RNC) Datetime: 08/19/2016 13:43 Monitor Interventions for UA: Kemp Adjusted (Kym Camp, RNC) Monitor Interventions for FHR: Ultrasound Adjusted (Kym Camp, RNC) Patient Position/Activity: Left Lateral; Peanut Ball (Kym Camp, RNC) Datetime: 08/19/2016 13:39 NBP Sys/Radha/Mean (mmHg): 132 (QS system process) : 72 (QS system process) : 95 (QS system process) Pulse: 96 (QS system process) LaborFlag: Labor (QS system process) Datetime: 08/19/2016 13:34 NBP Sys/Radha/Mean (mmHg): 132 (QS system process) : 66 (QS system process) : 92 (QS system process) Pulse: 89 (QS system process) LaborFlag: Labor (QS system process) Datetime: 08/19/2016 13:31 NBP Sys/Radha/Mean (mmHg): 136 (QS system process) : 72 (QS system process) : 96 (QS system process) Pulse: 80 (QS system process) Respirations: 17 (Kym Camp, RNC) LaborFlag: Labor (QS system process) Datetime: 08/19/2016 13:30 Monitor Mode: External; Palpation (Kym Camp, RNC) Monitor Interventions for UA: Kemp Adjusted (Kym Camp, RNC) Frequency (min): 1.5-2 (Kym Camp, RNC) Quality: Moderate (Kym Camp, RNC) Duration (sec): 60-80 (Kym Camp, RNC) Duration Criteria: Less than Two 120 Second Contractions (Kym Camp, RNC) Pattern: Normal: <= 5 Contractions in 10 Minutes (Kym Camp, RNC) Resting Tone (Palpate): Relaxed (Kym Camp, RNC) Monitor Mode: External US; Auscultation (Kym Camp, RNC) FHR Baseline Rate : 135 (Kym Camp, RNC) FHR Baseline Changes: No Baseline Change (Kym Camp, RNC) Variability: Moderate 6-25 bpm (Kym Camp, RNC) Accelerations: 15X15 (Kym Camp, RNC) Decelerations: Early; Variable (Kym Camp, RNC) Pitocin (milliunit): Pitocin Remains (milliunits) @ 18 (Kym Camp, RNC) Datetime: 08/19/2016 13:26 NBP Sys/Radha/Mean (mmHg): 122 (QS system process) : 71 (QS system process) : 91 (QS system process) Pulse: 82 (QS system process) LaborFlag: Labor (QS system process) Datetime: 08/19/2016 13:20 NBP Sys/Radha/Mean (mmHg): 128 (QS system process) : 67 (QS system process) : 89 (QS system process) Pulse: 82 (QS system process) Communication: Report Given to @ Michael Wood [facility] ([facility], [facility]) Communication Comments: Notified of change in cervix 5.5/80/0 and early decels noted (Kym Dennison, [facility]) LaborFlag: Labor (QS system process) Datetime: 08/19/2016 13:17 Monitor Interventions for UA: Kemp Adjusted (Kym Camp, RNC) Monitor Interventions for FHR: Ultrasound Adjusted (Kym Camp, RNC) Patient Position/Activity: HOB Lowered; Right Tilt (Kym Camp, RNC) Datetime: 08/19/2016 13:15 NBP Sys/Radha/Mean (mmHg): 137 (QS system process) : 87 (QS system process) : 106 (QS system process) Pulse: 79 (QS system process) Respirations: 16 (Kym Camp, RNC) Monitor Mode: External; Palpation (Kym Camp, RNC) Frequency (min): 2-2.5 (Kym Camp, RNC) Quality: Moderate (Kym Camp, RNC) Duration (sec): 60-90 (Kym Camp, RNC) Duration Criteria: Less than Two 120 Second Contractions (Kym Camp, RNC) Pattern: Normal: <= 5 Contractions in 10 Minutes (Kym Camp, RNC) Resting Tone (Palpate): Relaxed (Kym Camp, RNC) Monitor Mode: External US; Auscultation (Kym Camp, RNC) FHR Baseline Rate : 135 (Kym Camp, RNC) FHR Baseline Changes: No Baseline Change (Kym Camp, RNC) Variability: Moderate 6-25 bpm (Kym Camp, RNC) Accelerations: 15X15 (Kym Camp, RNC) Decelerations: Early (Kym Camp, RNC) Dilatation (cm): 5.5 ([facility], [facility]) Effacement (%): 80 ([facility], [facility]) Station: 0 ([facility], [facility]) Exam by: Camp, S ([facility], [facility]) Vaginal Bleeding: None ([facility], [facility]) Cervix, Consistency: Soft ([facility], [facility]) Cervix, Position: Anterior ([facility], [facility]) LaborFlag: Labor (QS system process) Datetime: 08/19/2016 13:12 IV/Blood Work: IV Bolus Given ml @ 1000ml lr; New IV Bag Hung ([facility], [facility]) Patient Care Comments: lr @ 125ml/hr ([facility], [facility]) Datetime: 08/19/2016 13:11 NBP Sys/Radha/Mean (mmHg): 137 (QS system process) : 80 (QS system process) : 102 (QS system process) Pulse: 84 (QS system process) LaborFlag: Labor (QS system process) Datetime: 08/19/2016 13:08 I/O Interventions: Ruiz Cath Inserted (Kym Camp, RNC) Patient Care Comments: 14fr ruiz placed draining clear yellow urine secured with cath secure to left interior thigh (Kym Camp, RNC) Datetime: 08/19/2016 13:05 NBP Sys/Radha/Mean (mmHg): 142 (QS system process) : 66 (QS system process) : 94 (QS system process) Pulse: 82 (QS system process) LaborFlag: Labor (QS system process) Datetime: 08/19/2016 13:04 NBP Sys/Radha/Mean (mmHg): 128 (QS system process) : 80 (QS system process) : 97 (QS system process) Pulse: 114 (QS system process) LaborFlag: Labor (QS system process) Datetime: 08/19/2016 13:03 NBP Sys/Radha/Mean (mmHg): 126 (QS system process) : 73 (QS system process) : 93 (QS system process) Pulse: 97 (QS system process) LaborFlag: Labor (QS system process) Datetime: 08/19/2016 13:01 NBP Sys/Rahda/Mean (mmHg): 166 (QS system process) : 73 (QS system process) : 105 (QS system process) Pulse: 87 (QS system process) Respirations: 17 (Kym Camp, RNC) LaborFlag: Labor (QS system process) Datetime: 08/19/2016 13:00 Monitor Mode: External (Kym Camp, RNC) Monitor Interventions for UA: Kemp Adjusted (Kym Camp, RNC) Frequency (min): 1.5-3 (Kym Camp, RNC) Quality: Moderate (Kym Camp, RNC) Duration (sec): 60-70 (Kym Camp, RNC) Duration Criteria: Less than Two 120 Second Contractions (Kym Camp, RNC) Pattern: Normal: <= 5 Contractions in 10 Minutes (Kym Camp, RNC) Resting Tone (Palpate): Relaxed (Kym Camp, RNC) Monitor Mode: External US; Auscultation (Kym Camp, RNC) FHR Baseline Rate : 135 (Kym Camp, RNC) FHR Baseline Changes: No Baseline Change (Kym Camp, RNC) Variability: Moderate 6-25 bpm (Kym Camp, RNC) Decelerations: Early (Kym Camp, RNC) Datetime: 08/19/2016 12:59 NBP Sys/Radha/Mean (mmHg): 156 (QS system process) : 73 (QS system process) : 107 (QS system process) Pulse: 93 (QS system process) Epidural Procedure: Loading Dose (Kym Camp, RNC) LaborFlag: Labor (QS system process) Datetime: 08/19/2016 12:58 NBP Sys/Radha/Mean (mmHg): 159 (QS system process) : 75 (QS system process) : 109 (QS system process) Pulse: 93 (QS system process) LaborFlag: Labor (QS system process) Datetime: 08/19/2016 12:57 Pulse: 89 (QS system process) SpO2 (%): 100 (QS system process) Anesthesia Plans: Local (Kym Camp, RNC) LaborFlag: Labor (QS system process) Datetime: 08/19/2016 12:52 Pulse: 96 (QS system process) SpO2 (%): 100 (QS system process) Procedure Verify: Correct Patient Identity; Correct Side and Site are Marked; Accurate Procedure Consent Form; Agreement on Procedure to be Done; Correct Patient Position; Safety Precautions Based on Patient History or Medication Use ([facility], [facility]) Epidural Positioning: Sitting ([facility], [facility]) Anesthesia Comments: Dr Dyson at bedside ([facility], [facility]) Instructional Method: Demo; Verbal; Written ([facility]) Unit Routine: Consents Signed ([facility]) Pain Management: Epidural ([facility]) LaborFlag: Labor (QS system process) Datetime: 08/19/2016 12:50 NBP Sys/Radha/Mean (mmHg): 167 (QS system process) : 79 (QS system process) : 114 (QS system process) Pulse: 83 (QS system process) LaborFlag: Labor (QS system process) Datetime: 08/19/2016 12:47 Pulse: 80 (QS system process) Pulse: 79 (QS system process) SpO2 (%): 89 (QS system process) SpO2 (%): 91 (QS system process) LaborFlag: Labor (QS system process) Datetime: 08/19/2016 12:45 Monitor Mode: External; Palpation (Kym Camp, RNC) Frequency (min): 2-3 (Kym Camp, RNC) Quality: Moderate (Kym Camp, RNC) Duration (sec): 70-100 (Kym Camp, RNC) Duration Criteria: Less than Two 120 Second Contractions (Kym Camp, RNC) Pattern: Normal: <= 5 Contractions in 10 Minutes (Kym Camp, RNC) Resting Tone (Palpate): Relaxed (Kym Camp, RNC) Monitor Mode: External US; Auscultation (Kym Camp, RNC) FHR Baseline Rate : 135 (Kym Camp, RNC) FHR Baseline Changes: No Baseline Change (Kym Camp, RNC) Variability: Moderate 6-25 bpm (Kym Camp, RNC) Accelerations: 15X15 (Kym Camp, RNC) Decelerations: Early (Kym Camp, RNC) Pitocin (milliunit): Pitocin Increased to (milliunits) @ (Annotations: 18) (Kym Camp, RNC) Datetime: 08/19/2016 12:43 Procedure Verify: Correct Patient Identity; Correct Side and Site are Marked; Agreement on Procedure to be Done; Safety Precautions Based on Patient History or Medication Use (Kym Camp, RNC) Epidural Positioning: Sitting (Kym Camp, RNC) Datetime: 08/19/2016 12:38 Communication: Provider Orders Received; Call/Page Placed to Provider (Kym Young, RNC) Communication Comments: Emmel given phone report of increasing pain level and request for epidural. Order received (Kym Camp, RNC) Datetime: 08/19/2016 12:36 Pain Scale: 4 (Kym Camp, RNC) Pain Presence: Intermittent (Kym Camp, RNC) Pain Type: Contraction (Kym Camp, RNC) Pain Location: Abdomen; Back (Kym Camp, RNC) Pain Coping: Requesting Pain Medication or Epidural (Kym Camp, RNC) Pain Assessment Comments: requests epidural anesthesia (Kym Camp, RNC) Comfort Measures: Breathing/Relaxation; Rocking Chair; Family Support (Kym Camp, RNC) LaborFlag: Labor (QS system process) Datetime: 08/19/2016 12:31 NBP Sys/Radha/Mean (mmHg): 145 (QS system process) : 77 (QS system process) : 105 (QS system process) Pulse: 89 (QS system process) LaborFlag: Labor (QS system process) Datetime: 08/19/2016 12:30 Monitor Mode: External; Palpation (Kym Camp, RNC) Frequency (min): 2-4 (Kym Camp, RNC) Quality: Moderate (Kym Camp, RNC) Duration (sec): 70-100 (Kym Camp, RNC) Duration Criteria: Less than Two 120 Second Contractions (Kym Camp, RNC) Pattern: Normal: <= 5 Contractions in 10 Minutes (Kym Camp, RNC) Resting Tone (Palpate): Relaxed (Kym Camp, RNC) Monitor Mode: External US; Auscultation (Kym Camp, RNC) FHR Baseline Rate : 130 (Kym Camp, RNC) FHR Baseline Changes: No Baseline Change (Kym Camp, RNC) Variability: Moderate 6-25 bpm (Kym Camp, RNC) Accelerations: 15X15 (Kym Camp, RNC) Decelerations: Early (Kym Camp, RNC) Pitocin (milliunit): Pitocin Increased to (milliunits) @ (Annotations: 16) (Kym Camp, RNC) Datetime: 08/19/2016 12:15 Monitor Mode: External; Palpation (Kym Camp, RNC) Frequency (min): 1.5-4 (Kym Camp, RNC) Quality: Mild/Moderate (Kym Camp, RNC) Duration (sec): 70-100 (Kym Camp, RNC) Duration Criteria: Less than Two 120 Second Contractions (Kym Camp, RNC) Pattern: Normal: <= 5 Contractions in 10 Minutes (Kym Camp, RNC) Resting Tone (Palpate): Relaxed (Kym Camp, RNC) Monitor Mode: External US; Auscultation (Kym Camp, RNC) FHR Baseline Rate : 140 (Kym Camp, RNC) FHR Baseline Changes: No Baseline Change (Kym Camp, RNC) Variability: Minimal - Undetectable to <=5 bpm (Kym Camp, RNC) Accelerations: 15X15 (Kym Camp, RNC) Decelerations: Early (Kym Camp, RNC) Pitocin (milliunit): Pitocin Increased to (milliunits) @ (Annotations: 14) (Kym Camp, RNC) Datetime: 08/19/2016 12:02 NBP Sys/Radha/Mean (mmHg): 127 (QS system process) : 76 (QS system process) : 97 (QS system process) Pulse: 69 (QS system process) Temperature (F): 98.3 (Kym Camp, RNC) Temperature (C): 36.8 (QS system process) Temperature Route: Oral (Kym Camp, RNC) LaborFlag: Labor (QS system process) Datetime: 08/19/2016 12:00 Monitor Mode: External; Palpation (Kym Camp, RNC) Frequency (min): 2-3 (Kym Camp, RNC) Quality: Mild/Moderate (Kym Camp, RNC) Duration (sec): 60-90 (Kym Camp, RNC) Duration Criteria: Less than Two 120 Second Contractions (Kym Camp, RNC) Pattern: Normal: <= 5 Contractions in 10 Minutes (Kym Camp, RNC) Resting Tone (Palpate): Relaxed (Kym Camp, RNC) Monitor Mode: External US; Auscultation (Kym Camp, RNC) FHR Baseline Rate : 145 (Kym Camp, RNC) FHR Baseline Changes: No Baseline Change (Kym Camp, RNC) Variability: Moderate 6-25 bpm (Kym Camp, RNC) Accelerations: 15X15 (Kym Camp, RNC) Decelerations: Early (Kym Camp, RNC) Pitocin (milliunit): Pitocin Increased to (milliunits) @ 14 (Kym Camp, RNC) Datetime: 08/19/2016 11:59 Communication: RN at Bedside; RN Reviewed Strip (Kym Camp, RNC) Datetime: 08/19/2016 11:49 Hygiene: Amanda Care; Underpad Changed (Kym Camp, RNC) Datetime: 08/19/2016 11:48 Patient Care Comments: to rocking chair (Kym Camp, RNC) Datetime: 08/19/2016 11:46 Patient Care Comments: Repositioned to rocking chair (Kym Camp, RNC) Datetime: 08/19/2016 11:45 Monitor Mode: External; Palpation (Kym Camp, RNC) Frequency (min): 2-3 (Kym Camp, RNC) Quality: Mild/Moderate (Kym Camp, RNC) Duration (sec): 70-90 (Kmy Camp, RNC) Duration Criteria: Less than Two 120 Second Contractions (Kym Camp, RNC) Pattern: Normal: <= 5 Contractions in 10 Minutes (Kym Camp, RNC) Resting Tone (Palpate): Relaxed (Kym Camp, RNC) Monitor Mode: External US; Auscultation (Kym Camp, RNC) FHR Baseline Rate : 140 (Kym Camp, RNC) FHR Baseline Changes: No Baseline Change (Kym Camp, RNC) Variability: Moderate 6-25 bpm (Kym Camp, RNC) Accelerations: 15X15 (Kym Camp, RNC) Decelerations: None (Kym Camp, RNC) Pitocin (milliunit): Pitocin Increased to (milliunits) @ 12 (Kym Camp, RNC) Communication: RN at Bedside; RN Reviewed Strip (Kym Camp, RNC) Datetime: 08/19/2016 11:42 I/O Interventions: Up to BR (Kym Camp, RNC) Datetime: 08/19/2016 11:32 NBP Sys/Radha/Mean (mmHg): 142 (QS system process) : 76 (QS system process) : 103 (QS system process) Pulse: 70 (QS system process) Respirations: 16 (Kym Camp, RNC) LaborFlag: Labor (QS system process) Datetime: 08/19/2016 11:30 Monitor Mode: External; Palpation (Kym Camp, RNC) Frequency (min): 2-3 (Kym Camp, RNC) Quality: Mild/Moderate (Kym Camp, RNC) Duration (sec): 70-90 (Kym Camp, RNC) Duration Criteria: Less than Two 120 Second Contractions (Kym Camp, RNC) Pattern: Normal: <= 5 Contractions in 10 Minutes (Kym Camp, RNC) Resting Tone (Palpate): Relaxed (Kym Camp, RNC) Monitor Mode: External US; Auscultation (Kym Camp, RNC) FHR Baseline Rate : 140 (Kym Camp, RNC) FHR Baseline Changes: No Baseline Change (Kym Camp, RNC) Variability: Moderate 6-25 bpm (Kym Camp, RNC) Accelerations: 15X15 (Kym Camp, RNC) Decelerations: None (Kym Camp, RNC) Pitocin (milliunit): Pitocin Remains (milliunits) @ 10 (Kym Camp, RNC) Datetime: 08/19/2016 11:14 Monitor Mode: External; Palpation (Kym Camp, RNC) Frequency (min): 2-3 (Kym Camp, RNC) Quality: Mild/Moderate (Kym Camp, RNC) Duration (sec): 50-90 (Kym Camp, RNC) Duration Criteria: Less than Two 120 Second Contractions (Kym Camp, RNC) Pattern: Normal: <= 5 Contractions in 10 Minutes (Kym Camp, RNC) Resting Tone (Palpate): Relaxed (Kym Camp, RNC) Monitor Mode: External US; Auscultation (Kym Camp, RNC) FHR Baseline Rate : 135 (Kym Camp, RNC) FHR Baseline Changes: No Baseline Change (Kym Camp, RNC) Variability: Moderate 6-25 bpm (Kym Camp, RNC) Decelerations: Variable (Kym Camp, RNC) Datetime: 08/19/2016 11:01 NBP Sys/Radha/Mean (mmHg): 128 (QS system process) : 71 (QS system process) : 95 (QS system process) Pulse: 71 (QS system process) Respirations: 17 (Kym Camp, RNC) LaborFlag: Labor (QS system process) Datetime: 08/19/2016 11:00 Monitor Mode: External; Palpation (Kym Camp, RNC) Frequency (min): 3-5 (Kym Camp, RNC) Quality: Mild/Moderate (Kym Camp, RNC) Duration (sec): 60-80 (Kym Camp, RNC) Duration Criteria: Less than Two 120 Second Contractions (Kym Camp, RNC) Pattern: Normal: <= 5 Contractions in 10 Minutes (Kym Camp, RNC) Resting Tone (Palpate): Relaxed (Kym Camp, RNC) Monitor Mode: External US; Auscultation (Kym Camp, RNC) FHR Baseline Rate : 135 (Kym Camp, RNC) FHR Baseline Changes: No Baseline Change (Kym Camp, RNC) Variability: Moderate 6-25 bpm (Kym Camp, RNC) Decelerations: Early (Kym Camp, RNC) Pitocin (milliunit): Pitocin Decreased to (milliunits) @ 10 (Kym Camp, RNC) Teaching Comments: Reviewed plan for Pitocin decrease (Kym Camp, RNC) Datetime: 08/19/2016 10:58 Communication Comments: A Israel HANSON given phone report of contraction pattern with contractions spacing and informed of Pitocin max of 20 milliunits. Plan discussed and order received to decrease Pitocin to 10 milliunits for 30 minutes then begin increasing every 15 minutes as ordered (Kym Camp, RNC) Datetime: 08/19/2016 10:44 Monitor Mode: External; Palpation (Kym Camp, RNC) Frequency (min): 2-3 (Kym Camp, RNC) Quality: Mild/Moderate (Kym Camp, RNC) Duration (sec): 60-90 (Kym Camp, RNC) Duration Criteria: Less than Two 120 Second Contractions (Kym Camp, RNC) Pattern: Normal: <= 5 Contractions in 10 Minutes (Kym Camp, RNC) Resting Tone (Palpate): Relaxed (Kym Camp, RNC) Monitor Mode: External US; Auscultation (Kym Camp, RNC) FHR Baseline Rate : 145 (Kym Camp, RNC) FHR Baseline Changes: No Baseline Change (Kym Camp, RNC) Variability: Moderate 6-25 bpm (Kym Camp, RNC) Accelerations: 15X15 (Kym Camp, RNC) Decelerations: Early (Kym Camp, RNC) Pain Scale: 1 (Kym Camp, RNC) Pain Presence: Intermittent (Kym Camp, RNC) Pain Type: Cramping (Kym Camp, RNC) Pain Location: Abdomen (Kym Camp, RNC) Pain Coping: Declines Medication or Epidural (Kym Camp, RNC) Pitocin (milliunit): Pitocin Remains (milliunits) @ 20 (Kym Camp, RNC) Comfort Measures: Family Support (Kym Camp, RNC) LaborFlag: Labor (QS system process) Datetime: 08/19/2016 10:33 Patient Position/Activity: Birthing Ball (Kym Young, RNC) Patient Care Comments: Repositioned to birthing ball, toco and u/s adjusted (Kym Camp, RNC) Datetime: 08/19/2016 10:31 NBP Sys/Radha/Mean (mmHg): 143 (QS system process) : 79 (QS system process) : 105 (QS system process) Pulse: 75 (QS system process) Respirations: 16 (Kym Camp, RNC) LaborFlag: Labor (QS system process) Datetime: 08/19/2016 10:30 Pitocin (milliunit): Pitocin Increased to (milliunits) @ 20 (Kym Camp, RNC) Pitocin (milliunit): Pitocin Increased to (milliunits) @ (Annotations: 20) (Kym Camp, RNC) Communication: RN at Bedside; RN Reviewed Strip (Kym Hector, RNC) Datetime: 08/19/2016 10:29 Communication: RN at Bedside; RN Reviewed Strip (Kym Camp, RNC) Datetime: 08/19/2016 10:26 I/O Interventions: Up to BR (Kym Camp, RNC) Datetime: 08/19/2016 10:15 Monitor Mode: External; Palpation (Kym Camp, RNC) Frequency (min): 3-4 (Kym Camp, RNC) Quality: Mild/Moderate (Kym Camp, RNC) Duration (sec): 60-90 (Kym Camp, RNC) Duration Criteria: Less than Two 120 Second Contractions (Kym Camp, RNC) Pattern: Normal: <= 5 Contractions in 10 Minutes (Kym Camp, RNC) Resting Tone (Palpate): Relaxed (Kym Camp, RNC) Monitor Mode: External US; Auscultation (Kym Camp, RNC) FHR Baseline Rate : 140 (Kym Camp, RNC) FHR Baseline Changes: No Baseline Change (Kym Camp, RNC) Variability: Moderate 6-25 bpm (Kym Camp, RNC) Accelerations: 15X15 (Kym Camp, RNC) Decelerations: None (Kym Camp, RNC) Pitocin (milliunit): Pitocin Increased to (milliunits) @ (Annotations: 18) (Kym Camp, RNC) Datetime: 08/19/2016 10:02 NBP Sys/Radha/Mean (mmHg): 128 (QS system process) : 74 (QS system process) : 96 (QS system process) Pulse: 81 (QS system process) Respirations: 16 (Kym Camp, RNC) Temperature (F): 98.2 (Kym Camp, RNC) Temperature (C): 36.8 (QS system process) Temperature Route: Oral (Kym Camp, RNC) LaborFlag: Labor (QS system process) Datetime: 08/19/2016 10:00 Monitor Mode: External; Palpation (Kym Camp, RNC) Frequency (min): 3-4 (Kym Camp, RNC) Quality: Mild/Moderate (Kym Camp, RNC) Duration (sec): 70-90 (Kym Camp, RNC) Duration Criteria: Less than Two 120 Second Contractions (Kym Camp, RNC) Pattern: Normal: <= 5 Contractions in 10 Minutes (Kym Camp, RNC) Resting Tone (Palpate): Relaxed (Kym Camp, RNC) Monitor Mode: External US; Auscultation (Kym Camp, RNC) FHR Baseline Rate : 135 (Kym Camp, RNC) FHR Baseline Changes: No Baseline Change (Kym Camp, RNC) Variability: Moderate 6-25 bpm (Kym Camp, RNC) Accelerations: 15X15 (Kym Camp, RNC) Decelerations: None (Kym Camp, RNC) Pitocin (milliunit): Pitocin Increased to (milliunits) @ 16 (Kym Camp, RNC) Datetime: 08/19/2016 09:45 Monitor Mode: External; Palpation (Kym Camp, RNC) Frequency (min): 3-4 (Kym Camp, RNC) Quality: Mild/Moderate (Kym Camp, RNC) Duration (sec): 70-90 (Kym Camp, RNC) Duration Criteria: Less than Two 120 Second Contractions (Kym Camp, RNC) Pattern: Normal: <= 5 Contractions in 10 Minutes (Kym Camp, RNC) Resting Tone (Palpate): Relaxed (Kym Camp, RNC) Monitor Mode: External US; Auscultation (Kym Camp, RNC) FHR Baseline Rate : 135 (Kym Camp, RNC) FHR Baseline Changes: No Baseline Change (Kym Camp, RNC) Variability: Minimal - Undetectable to <=5 bpm (Kym Camp, RNC) Decelerations: None (Kym Camp, RNC) Pitocin (milliunit): Pitocin Increased to (milliunits) @ 14 (Kym Camp, RNC) Datetime: 08/19/2016 09:42 IV/Blood Work: New IV Bag Hung; IV Bag Number @ 2 (Kym Camp, RNC) Patient Care Comments: LR 1000 ml @ 125ml/hr (Kym Camp, RNC) Datetime: 08/19/2016 09:32 NBP Sys/Radha/Mean (mmHg): 140 (QS system process) : 76 (QS system process) : 102 (QS system process) Pulse: 81 (QS system process) Respirations: 16 (Kym Camp, RNC) LaborFlag: Labor (QS system process) Datetime: 08/19/2016 09:30 Monitor Mode: External; Palpation (Kym Camp, RNC) Frequency (min): 4-5 (Kym Camp, RNC) Quality: Mild (Kym Camp, RNC) Duration (sec): 50-70 (Kym Camp, RNC) Duration Criteria: Less than Two 120 Second Contractions (Kym Camp, RNC) Pattern: Normal: <= 5 Contractions in 10 Minutes (Kym Camp, RNC) Resting Tone (Palpate): Relaxed (Kym Camp, RNC) Monitor Mode: External US; Auscultation (Kym Camp, RNC) FHR Baseline Rate : 140 (Kym Camp, RNC) FHR Baseline Changes: No Baseline Change (Kym Camp, RNC) Variability: Moderate 6-25 bpm (Kym Camp, RNC) Accelerations: 15X15 (Kym Camp, RNC) Decelerations: None (Kym Camp, RNC) Pitocin (milliunit): Pitocin Increased to (milliunits) @ 12 (Kym Camp, RNC) Datetime: 08/19/2016 09:21 Monitor Interventions for UA: Kemp Adjusted (Kym Camp, RNC) Datetime: 08/19/2016 09:16 Hygiene: Amanda Care; Underpad Changed (Kym Camp, RNC) Datetime: 08/19/2016 09:15 Monitor Mode: External; Palpation (Kym Camp, RNC) Frequency (min): 3-4 (Kym Camp, RNC) Quality: Mild (Kym Camp, RNC) Duration (sec): 60-100 (Kym Camp, RNC) Duration Criteria: Less than Two 120 Second Contractions (Kym Camp, RNC) Pattern: Normal: <= 5 Contractions in 10 Minutes (Kym Camp, RNC) Resting Tone (Palpate): Relaxed (Kym Camp, RNC) Monitor Mode: External US; Auscultation (Kym Camp, RNC) FHR Baseline Rate : 145 (Kym Camp, RNC) FHR Baseline Changes: No Baseline Change (Kym Camp, RNC) Variability: Moderate 6-25 bpm (Kym Camp, RNC) Accelerations: 15X15 (Kym Camp, RNC) Decelerations: None (Kym Camp, RNC) Pitocin (milliunit): Pitocin Increased to (milliunits) @ 10 (Kym Camp, RNC) I/O Interventions: Up to BR (Kym Camp, RNC) Datetime: 08/19/2016 09:02 NBP Sys/Radha/Mean (mmHg): 141 (QS system process) : 80 (QS system process) : 104 (QS system process) Pulse: 83 (QS system process) Respirations: 16 (Kym Camp, RNC) LaborFlag: Labor (QS system process) Datetime: 08/19/2016 09:00 Monitor Mode: External; Palpation (Kym Camp, RNC) Frequency (min): 3-4 (Kym Camp, RNC) Quality: Mild (Kym Camp, RNC) Duration (sec): 80-100 (Kym Camp, RNC) Pattern: Normal: <= 5 Contractions in 10 Minutes (Kym Camp, RNC) Resting Tone (Palpate): Relaxed (Kym Camp, RNC) Monitor Mode: External US; Auscultation (Kym Camp, RNC) FHR Baseline Rate : 135 (Kym Camp, RNC) FHR Baseline Changes: No Baseline Change (Kym Camp, RNC) Variability: Moderate 6-25 bpm (Kym Camp, RNC) Accelerations: 15X15 (Kym Camp, RNC) Decelerations: None (Kym Camp, RNC) Pain Scale: 0 (Kym Camp, RNC) Pain Presence: None/Denies (Kym Camp, RNC) Pain Type: N/A (Kym Camp, RNC) Pitocin (milliunit): Pitocin Increased to (milliunits) @ 8 (Kym Camp, RNC) Comfort Measures: Rocking Chair (Kym Camp, RNC) LaborFlag: Labor (QS system process) Datetime: 08/19/2016 08:48 Patient Position/Activity: Tailors (Kym Camp, RNC) Datetime: 08/19/2016 08:45 Monitor Mode: External; Palpation (Kym Camp, RNC) Frequency (min): 2-4 (Kym Camp, RNC) Quality: Mild (Kym Camp, RNC) Duration (sec): 60-80 (Kym Camp, RNC) Duration Criteria: Less than Two 120 Second Contractions (Kym Camp, RNC) Pattern: Normal: <= 5 Contractions in 10 Minutes (Kym Camp, RNC) Resting Tone (Palpate): Relaxed (Kym Camp, RNC) Monitor Mode: External US; Auscultation (Kym Camp, RNC) FHR Baseline Rate : 140 (Kym Camp, RNC) FHR Baseline Changes: No Baseline Change (Kym Camp, RNC) Variability: Moderate 6-25 bpm (Kym Camp, RNC) Accelerations: 15X15 (Kym Camp, RNC) Decelerations: None (Kym Camp, RNC) Datetime: 08/19/2016 08:44 Dilatation (cm): 3.0 (Kym Camp, RNC) Effacement (%): 70 (Kym Camp, RNC) Station: -1 (Kym Camp, RNC) Exam by: Leo Wood (Kym Camp, RNC) Membrane Status: Ruptured (Kym Camp, RNC) Membranes Rupture Method: Spontaneous (Kym Camp, RNC) Amniotic Fluid Color: Clear (Kym Camp, RNC) Amniotic Fluid Amount: Moderate (Kym Camp, RNC) Amniotic Fluid Odor: Normal (Kym Camp, RNC) Vaginal Bleeding: None (Kym Camp, RNC) Cervix, Consistency: Soft (Kym Young, RNC) Cervix, Position: Midposition (Kym Young, RNC) Datetime: 08/19/2016 08:42 Provider Reviewed Strip: Yes (Kym Young RNC) Communication: RN at Bedside; Provider at Bedside (Kym Young RNC) Communication Comments: A Emmel CNM present at bedside, chart, labs and vs reviewed. Discussed plan to proceed with ROM and Pitocin Induction (Kym Young RNC) Datetime: 08/19/2016 08:35 NBP Sys/Radha/Mean (mmHg): 144 (QS system process) : 63 (QS system process) : 91 (QS system process) Pulse: 97 (QS system process) Respirations: 17 (Kym Camp, RNC) LaborFlag: Labor (QS system process) Datetime: 08/19/2016 08:31 NBP Sys/Radha/Mean (mmHg): 153 (QS system process) : 80 (QS system process) : 110 (QS system process) Pulse: 84 (QS system process) Respirations: 17 (Kym Camp, RNC) LaborFlag: Labor (QS system process) Datetime: 08/19/2016 08:30 Monitor Mode: External; Palpation (Kym Camp, RNC) Frequency (min): 4-5 (Kym Camp, RNC) Quality: Mild (Kym Camp, RNC) Duration (sec): 60-80 (Kym Camp, RNC) Duration Criteria: Less than Two 120 Second Contractions (Kym Camp, RNC) Pattern: Normal: <= 5 Contractions in 10 Minutes (Kym Camp, RNC) Resting Tone (Palpate): Relaxed (Kym Camp, RNC) Monitor Mode: External US; Auscultation (Kym Camp, RNC) FHR Baseline Rate : 145 (Kym Camp, RNC) FHR Baseline Changes: No Baseline Change (Kym Camp, RNC) Variability: Moderate 6-25 bpm (Kym Camp, RNC) Accelerations: 15X15 (Kym Camp, RNC) Decelerations: None (Kym Camp, RNC) Pitocin (milliunit): Pitocin Increased to (milliunits) @ 4 (Kym Camp, RNC) Datetime: 08/19/2016 08:15 Monitor Mode: External; Palpation (Kym Camp, RNC) Frequency (min): 5-6 (Kym Camp, RNC) Quality: Mild (Kym Camp, RNC) Duration (sec): 60-80 (Kym Camp, RNC) Duration Criteria: Less than Two 120 Second Contractions (Kym Camp, RNC) Pattern: Normal: <= 5 Contractions in 10 Minutes (Kym Camp, RNC) Resting Tone (Palpate): Relaxed (Kym Camp, RNC) Monitor Mode: External US; Auscultation (Kym Camp, RNC) FHR Baseline Rate : 145 (Kym Camp, RNC) FHR Baseline Changes: No Baseline Change (Kym Camp, RNC) Variability: Moderate 6-25 bpm (Kym Camp, RNC) Accelerations: 15X15 (Kym Camp, RNC) Decelerations: None (Kym Camp, RNC) Datetime: 08/19/2016 08:02 NBP Sys/Radha/Mean (mmHg): 130 (QS system process) : 75 (QS system process) : 97 (QS system process) Pulse: 97 (QS system process) Respirations: 16 (Kym Camp, RNC) LaborFlag: Labor (QS system process) Datetime: 08/19/2016 07:59 Pitocin (milliunit): Pitocin Started (milliunits) @ 2 (Kym Camp, RNC) Medication Comments: via pump connected at port closest to site (Kym Camp, RNC) Datetime: 08/19/2016 07:57 Instructional Method: Verbal; Patient Instructed; Family/Support Person Instructed; Verbalized Understanding (Kym Camp, RNC) Medications: Pitocin (Kym Camp, RNC) Datetime: 08/19/2016 07:45 IV/Blood Work: IV Started; IV Bolus Started (Kym Camp, C) Datetime: 08/19/2016 07:44 Dilatation (cm): 2.5 ([facility], [facility]) Effacement (%): 50 ([facility], [facility]) Station: -1 ([facility], [facility]) Exam by: Camp, S ([facility], [facility]) Vaginal Bleeding: None (Kym Dennison, [facility]) Cervix, Consistency: Soft [facility]) Cervix, Position: Midposition ([facility], [facility]) Lie 'A': Unable to Assess ([facility], [facility]) Datetime: 08/19/2016 07:36 Instructional Method: Verbal; Written; Patient Instructed; Verbalized Understanding ([facility], [facility]) Unit Routine: Consents Signed (Kym Camp, RNC) Datetime: 08/19/2016 07:31 NBP Sys/Radha/Mean (mmHg): 123 (QS system process) : 72 (QS system process) : 93 (QS system process) Pulse: 102 (QS system process) Respirations: 16 (Kym Camp, RNC) LaborFlag: Labor (QS system process) Datetime: 08/19/2016 07:30 Frequency (min): irregular (Kym Camp, RNC) Quality: Mild (Kym Camp, RNC) Duration (sec): 50-70 (Kym Camp, RNC) Pattern: Normal: <= 5 Contractions in 10 Minutes (Kym Camp, RNC) Resting Tone (Palpate): Relaxed (Kym Camp, RNC) Contraction Comments: unaware of contractions, c/o intermittent "tightening" (Kym Camp, RNC) Pain Scale: 0 (Kym Camp, RNC) Pain Presence: None/Denies (Kym Camp, RNC) Pain Type: N/A (Kym Camp, RNC) Pain Coping: Declines Medication or Epidural (Kym Camp, RNC) Pain Assessment Comments: denies pain (Kym Camp, RNC) Membrane Status: Intact (Kym Camp, RNC) Vaginal Bleeding: None (Kym Camp, RNC) Dilatation (cm): 1-2 cm (Kym Camp, RNC) Effacement: 60-70_ effaced (Kym Camp, RNC) Station: minus 2 (Kym Dennison, RNC) Consistency: Soft (Kym Camp, RNC) Position: Midposition (Kym Camp, RNC) Total Arauz's Score: 7 (QS system process) : 5-8 = Small percentage of induction failure (QS system process) Level of Consciousness: Fully Conscious (Kym Camp, RNC) DTR's/Clonus: DTRs 2+; No Clonus (Kym Camp, RNC) Headache: Denies (Kym Camp, RNC) Breath Sounds, Left: Clear and Equal (Kym Camp, RNC) Breath Sounds, Right: Clear and Equal (Kym Camp, RNC) Nausea/Vomiting: Denies (Kym Camp, RNC) RUQ Epigastric Pain: Denies (Kym Camp, RNC) LaborFlag: Labor (QS system process) Datetime: 08/19/2016 07:24 Pulse: 97 (QS system process) SpO2 (%): 99 (QS system process) LaborFlag: Labor (QS system process) Datetime: 08/19/2016 07:22 NBP Sys/Radha/Mean (mmHg): 122 (QS system process) : 69 (QS system process) : 90 (QS system process) Pulse: 93 (QS system process) Respirations: 16 (Kym Camp, RNC) Comments: maternal heart rate tracing, pulse ox applied and u/s adjusted (Kym Camp, RNC) LaborFlag: Labor (QS system process) Datetime: 08/19/2016 07:21 IV/Blood Work: Labs Drawn (Kym Camp, RNC) Datetime: 08/19/2016 07:20 Patient Position/Activity: HOB Lowered; Right Lateral (Kym Camp, RNC) Patient Care Comments: EFM explained and applied (Kym Camp, RNC) Datetime: 08/19/2016 07:19 Instructional Method: Demo; Verbal; Written; Patient Instructed; Family/Support Person Instructed; Verbalized Understanding (BERTRAM Vega) Plan of Care: Plan of Care Discussed; Induction (BERTRAM Vega) Unit Routine: [place] to Room; [place]; Bed; Visiting Policy; Waiting Areas; Phone/Cell Phone Use; Monitoring (BERTRAM Vega) Labor/Induction: Induction (BERTRAM Vega) Pain Management: Pain Scale/Goals (BERTRAM Vega)
[2016-08-19] MEDS: IBUPROFEN 800 MG TABLET PO SCH (21:02)
[2016-08-20] MEDS: IBUPROFEN 800 MG TABLET PO SCH ×3 (05:57→21:10)
--- NOTE | 2016-08-20 06:01 | L&D General Admission ---
General Admit Datetime Report Generated by CPN: 08/20/2016 06:00 INFORMATION Patient Age: 36 (08/19/2016 06:39:QS system process) EDC: 08/21/2016 00:00 (08/19/2016 06:43:Annabel Degroot RN) : 2 (08/19/2016 06:43:Annabel Degroot RN) Para: 1 (08/19/2016 06:43:Annabel Degroot RN) Term: 1 (08/19/2016 06:43:Annabel Degroot RN) : 0 (08/19/2016 06:43:Annabel Degroot RN) Spontaneous Abortions: 0 (08/19/2016 06:43:Annabel Degroot RN) Induced Abortions: 0 (08/19/2016 06:43:nAnabel Degroot RN) Livin (08/19/2016 06:43:Annabel Degroot RN) Cesareans: 0 (08/19/2016 06:43:Annabel Degroot RN) VBACs: 0 (08/19/2016 06:43:Annabel Degroot RN) Ectopic: 0 (08/19/2016 06:43:Annabel Degroot RN) Multiple Births: 0 (08/19/2016 06:43:Annabel Degroot RN) Baby, Number in Womb: 1 (08/19/2016 06:43:Annabel Degroot RN) CARE Primary Warp Yarn Sorter: [facility] (08/19/2016 06:43:Annabel Degroot RN) Month of 1st Visit: December (08/19/2016 06:43:BERTRAM Vega) Adequate Care: Yes (08/19/2016 06:43:BERTRAM Vega) Prepregnancy Weight (lb): 120 (08/19/2016 06:43:BERTRAM Vega) Prepregnancy Weight (kg): 54.5 (08/19/2016 06:43:QS system process) Height (in): 61 (08/19/2016 19:53:QS system process) ALLERGIES Medication Allergy: No (08/19/2016 06:43:Kym Camp, RNC) Medication Allergies: No Known Allergies (08/19/2016) (08/19/2016 06:56:QS system process) Latex Allergy: No Latex Allergies (08/19/2016 06:43:Kym Camp, RNC) COMMUNICATION Primary Language: Uzbek (08/19/2016 06:43:Kym Camp, RNC) Medical Tx Preferred Language: Uzbek (08/19/2016 06:43:Kym Camp, RNC) Communication Barrier(s): None (08/19/2016 06:43:Kym Camp, RNC) DEMOGRAPHICS Address: [address] [place] [id number] (08/19/2016 06:39:QS system process) Zipcode: [address] (08/19/2016 06:39:QS system process) Home (08/19/2016 06:39:QS system process) SSN: [id number] (08/19/2016 06:39:QS system process) Next of Kin Name: SALIMA RICHARDSON (08/19/2016 06:39:QS system process) Next of Kin (08/19/2016 06:39:QS system process) Next of Kin Relationship: OR (08/19/2016 06:39:QS system process) Date of : 1980 (08/19/2016 06:39:QS system process) Marital Status: (08/19/2016 06:39:QS system process) Sex: Female (08/19/2016 06:39:QS system process) Occupation: Other (08/19/2016 06:43:BERTRAM Vega) 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 [id number] (08/19/2016 06:43:BERTRAM Vega) Marijuana: No (08/19/2016 06:43:Kym Camp, RNC) Cocaine: No (08/19/2016 06:43:Kym Camp, RNC) Other Illicit Drugs: No (08/19/2016 06:43:Kym Camp, RNC) VACCINE HISTORY Influenza Vaccine: Yes (08/19/2016 06:43:Kym Camp, RNC) Influenza Date: 06-03-16 (08/19/2016 06:43:Kym Camp, RNC) Pneumococcal Vaccine: No (08/19/2016 06:43:Kym Camp, RNC) Tetanus Vaccine: Yes (08/19/2016 06:43:Kym Camp, RNC) Tetanus Date: 06-03-16 (08/19/2016 06:43:Kym Camp, RNC) Tdap Vaccine: Yes (08/19/2016 06:43:Kym Camp, RNC) Tdap Date: 06-03-16 (08/19/2016 06:43:Kym Camp, RNC) Hepatitis B Vaccine: Uncertain (08/19/2016 06:43:Kym Camp, RNC) Arts Administrator: [facility] (08/19/2016 06:43:BERTRMA Vega) Feeding Preference: Breast (08/19/2016 06:43:BERTRAM Vega) Benefit of Breast Feed Discussed: Yes (08/19/2016 06:43:BERTRAM Vega) Circumcision: N/A (08/19/2016 06:43:BERTRAM Vega) Classes Attended: No (08/19/2016 06:43:BERTRAM Vega) Tubal Ligation: No (08/19/2016 06:43:BERTRAM Vega) Tubal Authorization Signed: N/A (08/19/2016 06:43:BERTRAM Vega) Consent: N/A (08/19/2016 06:43:BERTRAM Vega) Consent Signed: N/A (08/19/2016 06:43:BERTRAM Vega) Pain Management Plans: Epidural (08/19/2016 06:43:BERTRAM Vega) Plans for Labor and Delivery: None (08/19/2016 06:43:BERTRAM Vega) Support Person: Manolo Moya (08/19/2016 06:43:BERTRAM Vega) Support Person Relationship: (08/19/2016 06:43:BERTRAM Vega) Cultural/Spritual Practice: No (08/19/2016 06:43:BERTRAM Vega) Spir/Cult Dietary Needs: No (08/19/2016 06:43:BERTRAM Vega) LIVING SITUATION/DISCHARGE PLAN Living Arrangements: House (08/19/2016 06:43:BERTRAM Vega) Adequate Access to:: Electric; Heat; Refrigeration; Plumbing/Running water; Phone; Transportation (08/19/2016 06:43:BERTRAM Vega) WIC Program: No (08/19/2016 06:43:BERTRAM Vega) Discharge Operational Test Mechanic Person: Manolo Moya (08/19/2016 06:43:BERTRAM Vega) Person to Help after Discharge: Manolo Nita (08/19/2016 06:43:BERTRAM Vega) Currently Using Commun Resources: No (08/19/2016 06:43:BERTRAM Vega) Outside Agency/Digital Analyst: No (08/19/2016 06:43:BERTRAM Vega) Car Seat for Discharge: Yes (08/19/2016 06:43:BERTRAM Vega) Adoption Requested: No (08/19/2016 06:43:BERTRAM Vega) Pt Contact w/infant Post : N/A (08/19/2016 06:43:BERTRAM Vega) LABS Blood Type: A Negative (08/19/2016 06:43:Annabel Degroot RN) Antibody Screen: Negative (08/19/2016 06:43:Annabel Degroot RN) Rho(G) this : Yes (08/19/2016 06:43:Annabel Degroot RN) Date Rho(G) Given: 06/03/2016 (08/19/2016 06:43:Annabel Degroot RN) Hemoglobin: 13.0 (08/19/2016 07:02:QS system process) Hematocrit: 38.5 (08/19/2016 07:02:QS system process) MCV: 93 (08/19/2016 07:02:QS system process) Group Beta Strep: Negative (08/19/2016 06:43:Annabel Degroot RN) Gonorrhea: Negative (08/19/2016 06:43:Annabel Degroot RN) Chlamydia: Negative (08/19/2016 06:43:Annabel Degroot RN) RPR/VDRL: Nonreactive (08/19/2016 06:43:Annabel Degroot RN) HIV Results: Negative (08/19/2016 06:43:Annabel Degroot RN) Hepatitis B: Negative (08/19/2016 06:43:Annabel Degroot RN) Rubella: Immune (08/19/2016 06:43:Annabel Degroot RN) OB/PREVIOUS HISTORY Previous Procedures: Ultrasound; NST (08/19/2016 06:43:BERTRAM Vega) Current Procedures: Ultrasound; NST (08/19/2016 06:43:BERTRAM Vega) History of Previous : No (08/19/2016 06:43:BERTRAM Vega) History of Gestational Diabetes: No (08/19/2016 06:43:BERTRAM Vega) History of PIH: Yes (08/19/2016 06:43:BERTRAM Vega) History of Incompetent Cervix: No (08/19/2016 06:43:BERTRAM Vega) History of Placenta Previa/Abrup: No (08/19/2016 06:43:Kym Young [facility]) History of Macrosomia: No (08/19/2016 06:43:Kym Young [facility]) History of IUGR: No (08/19/2016 06:43:Kym Young [facility]) History of Hemorrhage: No (08/19/2016 06:43:Kym Young [facility]) History of Loss/Stillborn: No (08/19/2016 06:43:Kym Young [facility]) History of : No (08/19/2016 06:43:Kym Young [facility]) History of D (Rh) Sensitization: No (08/19/2016 06:43:Kym Young [facility]) History Recurrent Loss/Stillborn: No (08/19/2016 06:43:Kym Young [facility]) History Depression/PP Depression: No (08/19/2016 06:43:Kym Young [facility]) History of Uterine Anomaly/AVA: No (08/19/2016 06:43:Kym Young [facility]) History of Infertility: No (08/19/2016 06:43:Kym Young [facility]) History of ART Treatment: No (08/19/2016 06:43:Kym Young [facility]) History of AVA: No (08/19/2016 06:43:Kym Young [facility]) Comments Obstetrical History: Denies complications, CHTN (08/19/2016 06:43:Kym Young [facility]) MEDICAL HISTORY Med Hx Diabetes: No (08/19/2016 06:43:Kym Young [facility]) Med Hx Hypertension: Yes (08/19/2016 06:43:BERTRAM Vega) Med Hx Heart Disease: No (08/19/2016 06:43:BERTRAM Vega) Med Hx Autoimmune Disorder: No (08/19/2016 06:43:BERTRAM Vega) Med Hx Kidney Disease/UTI: No (08/19/2016 06:43:BERTRAM Vega) Med Hx Neurologic/Epilepsy: No (08/19/2016 06:43:BERTRAM Vega) Med Hx Psychiatric Disorders: No (08/19/2016 06:43:BERTRAM Vega) Med Hx Hepatitis/Liver Disease: No (08/19/2016 06:43:BERTRAM Vega) Med Hx Varicosities/Phlebitis: No (08/19/2016 06:43:BERTRAM Vega) Med Hx Thyroid Dysfunction: No (08/19/2016 06:43:BERTRAM Vega) Med Hx Trauma/Violence: No (08/19/2016 06:43:BERTRAM Vega) Med Hx Blood Transfusion: No (08/19/2016 06:43:BERTRAM Vega) Med Hx Pulmonary (Asthma,TB): No (08/19/2016 06:43:BERTRAM Vega) Med Hx Breast: No (08/19/2016 06:43:BERTRAM Vega) Med Hx CREDIT COLLECTIONS SPECIALIST Surgery: No (08/19/2016 06:43:BERTRAM Vega) Med Hx Hospitalization/Surgery: Yes (08/19/2016 06:43:BERTRAM Vega) Med Hx Anesthetic Complications: No (08/19/2016 06:43:BERTRAM Vega) Med Hx Abnormal Pap Smear: No (08/19/2016 06:43:BERTRAM Vega) Other Medical Diseases: No (08/19/2016 06:43:BERTRAM Vega) Med Hx Significant Family Hx: No (08/19/2016 06:43:BERTRAM Vega) Details of Med/Surg Hx: CHTN on meds x 3 years (08/19/2016 06:43:BERTRAM Vega) INFECTIOUS HISTORY Inf Hx Gonorrhea: No (08/19/2016 06:43:[facility]) Inf Hx Chlamydia: No (08/19/2016 06:43:[facility]) Inf Hx Syphilis: No (08/19/2016 06:43:[facility]) Inf Hx HIV/AIDS: No (08/19/2016 06:43:[facility]) Inf Hx Human Papilloma Virus: No (08/19/2016 06:43:[facility]) Inf Hx Pt/Partner Genital Herpes: No (08/19/2016 06:43:[facility]) Inf Hx Tuberculosis/Exposure: No (08/19/2016 06:43:[facility]) Inf Hx Hepatitis B,C: No (08/19/2016 06:43:[facility]) Inf Hx Rash or Viral Illness: No (08/19/2016 06:43:[facility]) GENETIC HISTORY Gen Hx Age >=35 at SHALONDA: No (08/19/2016 06:43:[facility], [facility]) Gen Hx Thalassemia: No (08/19/2016 06:43:[facility]) Gen Hx Congenital Heart Defect: No (08/19/2016 06:43:Kym Young [facility]) Gen Hx Neural Tube Defect: No (08/19/2016 06:43:Kym Young [facility]) Gen Hx Down's Syndrome: Yes (08/19/2016 06:43:Kym Young [facility]) Gen Hx Isaac-Sachs: No (08/19/2016 06:43:Kym Young [facility]) Gen Hx Dorie: No (08/19/2016 06:43:Kym Young [facility]) Gen Hx Familial Dysautonomia: No (08/19/2016 06:43:Kym Young [facility]) Gen Hx Sickle Cell Disease/Trait: No (08/19/2016 06:43:Kym Young [facility]) Gen Hx Hemophilia/Blood Disorder: No (08/19/2016 06:43:Kym Young [facility]) Gen Hx Muscular Dystrophy: No (08/19/2016 06:43:Kym Young [facility]) Gen Hx Cystic Fibrosis: No (08/19/2016 06:43:Kym Young [facility]) Gen Hx Huntingtons Chorea: No (08/19/2016 06:43:Kym Young [facility]) Gen Hx Mental Retardation/Autism: No (08/19/2016 06:43:Kym Young [facility]) Gen Hx Tested for Fragile X: No (08/19/2016 06:43:Kym Young [facility]) Gen Hx Other Inher/Chromosomal: No (08/19/2016 06:43:Kym Young [facility]) Gen Hx Maternal Metabolic DO: No (08/19/2016 06:43:Kym Young [facility]) Gen Hx Pt Father or FOB Defect: No (08/19/2016 06:43:Kym Young [facility]) Gen Hx Other Genetic History: No (08/19/2016 06:43:Kym Young [facility]) Gen Hx Drugs/Meds since LMP: No (08/19/2016 06:43:Kym Young [facility]) Details of Genetic History: Niece has Mosaic Down's Syndrome (08/19/2016 06:43:Kym Young [facility])
--- NOTE | 2016-08-20 06:01 | L&D Current Admission ---
Current Admit Datetime Report Generated by CPN: 08/20/2016 06:00 ADMISSION INFORMATION Current Admit Date/Time: 08/19/2016 07:30 (08/19/2016 08:21:BERTRAM Vega) Reason for Admission: Induction of Labor (08/19/2016 08:21:BERTRAM Vega) Chief Complaint: Scheduled Induction of Labor (08/19/2016 07:30:BERTRAM Vega) EGA per Dates: 39.5 (08/19/2016 08:21:QS system process) Method of Arrival: Ambulatory (08/19/2016 08:21:BERTRAM Vega) Reason for Induction: Chronic Hypertension (08/19/2016 08:21:BERTRAM Vega) Records Available: Yes (08/19/2016 08:21:BERTRAM Vega) General Admission Information: Reviewed; Updated; Confirmed (08/19/2016 08:21:BERTRAM Vega) General Admission Reviewed By: yKm BURDEN (08/19/2016 08:21:BERTRAM Vega) BELONGINGS/ADVANCED DIRECTIVES Other Belongings: See [facility] Valuables consent (08/19/2016 08:21:BERTRAM Vega) Disposition of Belongings: Kept with Patient (08/19/2016 08:21:BERTRAM Veag) Advance Direct for Healthcare: No, and Wants No Information (08/19/2016 08:21:BERTRAM Vega) Durable Power of Ocean Rescue Lieutenant: No (08/19/2016 08:21:BERTRAM Vega) Living Will: No (08/19/2016 08:21:BERTRAM Vega) Organ Donor: No (08/19/2016 08:21:BERTRAM Vega) Pt Rights Information Given: Yes (08/19/2016 08:21:BERTRAM Vega) Pt Understands Pt Rights: Yes (08/19/2016 08:21:BERTRAM Vega) LEARNING ASSESSMENT Knowledge Level: Understands L_D Process; Understands Care Activities; Understands Diagnosis (08/19/2016 08:21:BERTRAM Vega) Barriers to Learning: None (08/19/2016 08:21:BERTRAM Vega) Learning Readiness: Motivated (08/19/2016 08:21:BERTRAM Vega) Learns Best By: 1 to 1 Instruction; Demonstration (08/19/2016 08:21:BERTRAM Vega) Learning Needs: Labor and Delivery Process; Pain Management; Symptoms to Report; Treatment Plan; Medication; Diagnosis; Nutrition; Equipment; Community Resources; Other (08/19/2016 08:21:BERTRAM Vega) Learning Assessment Comments: (08/19/2016 08:21:BERTRAM Vega) DOMESTIC VIOLANCE SCREENING Dom Viol Threatened/Hurt: No (08/19/2016 08:21:BERTRAM Vega) Hx of Abuse/Neglect past 2yrs: No (08/19/2016 08:21:BERTRAM Vega) Feel Unsafe Going Home: No (08/19/2016 08:21:BERTRAM Vega) Addt'l Observ Indicating Abuse: No (08/19/2016 08:21:BERTRAM Vega) Reason Unable to Complete Screen: N/A, Screen Completed (08/19/2016 08:21:BERTRAM Vega) Considered Personal Harm/Suicide: No (08/19/2016 08:21:BERTRAM Vega) NUTRITIONAL/FUNCTIONAL SCREENING Problem with Appetite >5 Days: No (08/19/2016 08:21:BERTRAM Vega) Chew/Swallow Difficulties: No (08/19/2016 08:21:BERTRAM Vega) Inappropriate Wt Gain/Loss: No (08/19/2016 08:21:BERTRAM Vega) Presence Skin Breakdown/Ulcer: No (08/19/2016 08:21:BERTRAM Vega) Special Diet: No (08/19/2016 08:21:BERTRAM Vega) Pt Requests Grain Commodity Manager Visit: No (08/19/2016 08:21:BERTRAM Vega) Hx of Any of the Following?: N/A (08/19/2016 08:21:BERTRAM Vega) New Diagnosis of: N/A (08/19/2016 08:21:BERTRAM Vega) Requires Assist w/Ambulation: No (08/19/2016 08:21:BERTRAM Vega) Uses Assist Device to Ambulate: No (08/19/2016 08:21:BERTRAM Vega) Pt Requires Help w/ADL's: No (08/19/2016 08:21:BERTRAM Vega)
--- NOTE | 2016-08-20 06:16 | L&D Care Plan ---
LD CARE PLANS Datetime Report Generated by CPN: 08/20/2016 06:15 Datetime: 08/19/2016 09:59 Pain State: Risk For (Kym Camp, RNC) Related To: Labor and Delivery Process; Treatment and Procedures; Post (Kym Camp, RNC) Goal(s): Patients Pain will be Assessed and Managed; Patient will Verbalize Adequate Relief of Pain or the Ability to [place] with Current Pain (Kym Camp, RNC) Interventions: Assess Pain Severity on Scale of 0 (None) to 5 (Severe); Assess Type, Location and Intensity of Pain Each Time Client Reports Discomfort and Notify Provider if Unusal Pain Develops; Encourage Proper Breathing and Relaxation Techniques; Offer Alternatives Such as Repositioning, Calm Environment, Massages, Diversional Activities, Ice Pack, Splinting, and Ambulation; Administer Analgesics as Ordered; Assist with Epidural Placement as Appropriate; Evaluate Therapeutic Effectiveness of Medication and Treatments (Kym Young, BERTRAM) Outcome: Patient will Report Absence or Relief of Pain Consistent with Established Pain Goal (BERTRAM Vega) Status: Ongoing (BERTRAM Vega) Outcome: Patient will have a Decrease in Signs and Symptoms of Discomfort (Kym Young, RNC) Status: Ongoing (BERTRAM Vega) Outcome: Pain will be Controlled During Procedures (BERTRAM Vega) Status: Ongoing (BERTRAM Vega) Anxiety State: Actual (BERTRAM Vega) Related To: Labor and Delivery Process; Fear of Unknown; Situational Crisis; Medical Interventions; Significant Life Event (BERTRAM Vega) Goal(s): Patient will have Decreased Anxiety and be able to Function at Acceptable Levels (Kym Young, BERTRAM) Interventions: Assess Verbal and Nonverbal Behavioral Indicators of Anxiety; Assist Patient to Identify and Verbalize Symptoms of Anxiety; Identify and Demonstrate Techniques to Control Anxiety; Assist Patient with Coping Mechanisms to Manage Anxiety; Provide Theraputic Touch for the Patient; Explain to Patient, Using a Calm Reassuring Approach and Nonmedical Terms, All Activities, Procedures, and Concerns; Instruct Patient and Family about Post Discharge Care, Limitations, Symptoms to Report and Resources Available (Kym Young, BERTRAM) Outcome: Patient will Identify, Verbalize and Demonstrate Techniques to Control Anxiety (BERTRAM Vega) Status: Ongoing (Kym Young, [facility]) Outcome: Patient's Posture, Facial Expressions, Gestures and Activity Level will Reflect Decreased Anxiety (Kym Young, RN) Status: Ongoing (Kym Young, RN) Outcome: Patient will Verbalize a Sense of Control and/or Acceptance of the Situation (Kym Young, RNC) Status: Ongoing (Kym [place], RN) Outcome: Patient will Identify and Utilize Support Person (Kym Young [facility]) Status: Ongoing (Kym [place], [facility]) Infection State: Risk For (Kym Young, [facility]) Related To: Prolonged Labor or Induction; Invasive Procedures (Kym Young, [facility]) Goal(s): The Patient will be Free of Infection, Vital Signs Stable and Lab Work within Normal Parameters (Kym Young, [facility]) Interventions: Instruct and Reinforce Proper Handwashing, Hygiene, and Care Techniques to Patient and Family; Monitor Vital Signs; Monitor Patient for the Following Signs of Infection: Fever, Abdominal Tenderness, Unusual Discharge; Monitor Aminiotic Fluid, Urine and Lochia for Color and Odor; Observe Wounds, Incisions and Invasive Line Sites for Redness, Drainage and Edema; Assess IV Sites per Hospital Policy; Monitor Lab and Test Results and Notify Provider of Abnormal Findings; Assess Nutritional Status and Promote Good Nutrition (Kym Young, [facility]) Outcome: Patient will Remain Free of Infection (Kym Young, RN) Status: Ongoing (Kym Young, [facility]) Outcome: Infection will be Recognized Early to Allow for Prompt Treatment (Kym Young, RNC) Status: Ongoing (Kym Young, RN) Outcome: Patient will have Vital Signs Within Expected Range (Kym Young, RNC) Status: Ongoing (Kym Young, RNC) Fluid Volume State: Risk For (Kym Camp, RNC) Related To: Gestational Hypertension; Prolonged Labor or Induction (Kym Camp, RNC) Goal(s): Patient will Achieve and Maintain a Balanced Fluid Volume Status; Hemodynamically Stable (Kym Camp, RNC) Interventions: Monitor Vital Signs; Auscultate Breath Sounds; Monitor Patient for Skin Turgor, Mucous Membranes, Dry Skin, Weakness, Headaches and Confusion; Provide Oral Fluids as Ordered; Initiate and Maintain Intravenous Fluids as Ordered; Monitor Intake and Output as Indicated Per Patient Status; Accurately Measure Blood Loss; Monitor Lab and Test Results as Obtained and Notify Provider of Abnormal Findings; Monitor Patient's Weight (Kym Camp, RNC) Outcome: Patient will have Clear Lung Sounds (Kym Camp, RNC) Status: Ongoing (Kym Camp, RNC) Outcome: Patient will have Vital Signs within Expected Range (Kym Camp, RNC) Status: Ongoing (Kym Camp, RNC) Outcome: Urine Output will be within Expected Range (Kym Camp, RNC) Status: Ongoing (Kym Camp, RNC) Outcome: Patient will have Minimal Generalized or Upper Extremity Edema (Kym Camp, RNC) Status: Ongoing (Kym Camp, RNC) Injury State: Risk For (BERTRAM Vega) Related To: Labor and Delivery Process; Gestational Hypertension or Eclampsia (BERTRAM Vega) Goal(s): Patient will Remain Free from Injury (BERTRAM Vega) Interventions: Monitoring as per Hospital Protocol; Assess Neurological Status; Perform Risk Assessment of Patients with Induction and ; Perform Fall Risk Assessment and Prevention per Hospital Protocol; Perform DVT Risk Assessment and Prophylaxis per Hospital Protocol; Ensure that Oxygen, Suction, and Resuscitation Medications and Equipment are Readily Available; Confirm Patient ID Prior to Procedure(s) and Medication Administration per Hospital Policy (BERTRAM Vega) Outcome: Successful Fall Risk Prevention (BERTRAM Vega) Status: Ongoing (BERTRAM Vega) Outcome: Patient will Deliver Infant without Adverse Sequela (BERTRAM Vega) Status: Ongoing (BERTRAM Vega) Outcome: Patient's Neurological Status will Remain Stable (BERTRAM Vega) Status: Ongoing (Kym Young RNC) Impaired Skin Integrity State: Risk For (BERTRAM Vega) Related To: Vaginal Delivery; Invasive Procedures (BERTRAM Vega) Goal(s): Patient will Maintain Optimal Skin Integrity, Free of Breakdown, Injury or Infection (BERTRAM Vega) Interventions: Complete Screening for Pressure Ulcer Risk and Initiate Protocol per Hospital Policy; Monitor Site of Skin Impairment for Color Changes, Redness, Swelling, Warmth, Pain or Other Signs of Infection; Encourage and Assist with Position Changes; Monitor Patient's Mobility Status; Provide Adequate Nutrition and Fluids; Teach Patient Appropriate Hygienic Care; Teach Patient/Family Skin Care Management (Kym Camp, RNC) Outcome: Patient will not have Evidence of Injury Such as Skin Breakdown, Scrapes, Cuts, or Bruising (Kym Young, RNC) Status: Ongoing (Kym Young, RNC) Outcome: Patient will Report Any Altered Sensation or Pain at Site of Skin Impairment (Kym Young, RNC) Status: Ongoing (Kym Young, RN) Outcome: Patients Incisions and Wounds will be without Signs or Symptoms of Infection (Kym Young, RNC) Status: Ongoing (Kym Young, EDWIN) Outcome: Patient will Demonstrate Understanding of Plan to Heal Skin and Prevent Reinjury and Verbalize Risk Factors (Kym Young, RNC) Status: Ongoing (Kym Young, EDWIN)
[2016-08-20 07:58] LABS: HEMATOCRIT 33.3 % (36.0-47.0); HEMOGLOBIN 11.3 g/dL (12.0-15.5); HGB HCT DIFFERENCE 0.6; MEAN CORPUSCULAR HEMOGLOBIN 31.4 pg (27.0-33.4); MEAN CORPUSCULAR VOLUME 92 fl (80-97); RED CELL DISTRIBUTION WIDTH 14.6 % (11.5-14.0); WHITE BLOOD COUNT 12.2 10^3/uL (4.0-10.5)
[2016-08-20] MEDS: FERROUS SULFATE 325 MG TABLET PO SCH ×2 (09:51→17:17)
[2016-08-20] MEDS: DOCUSATE SODIUM 100 MG CAPSULE PO SCH ×2 (09:51→17:17)
[2016-08-20] MEDS: PRENATAL VITAMIN W-O CA NO5/FE FUMARATE/FA CAPSULE PO SCH (09:51)
[2016-08-20] MEDS: SENNOSIDES/DOCUSATE 8.6-50 MG 1 EACH TABLET PO SCH (09:52)
--- NOTE | 2016-08-20 14:16 | PDOC PROGRESS REPORT ---
Subjective-OB Subjective: Post Delivery Day: 36 year old. Denies any needs at this time. Pt doing well, no concerns. She reports light bleeding, regular diet and voiding well. Physical Exam (OB) Vital Signs: Temp Pulse Resp BP Pulse Ox 98.4 F 73 15 138/80 H 100 08/20/16 12:43 08/20/16 12:43 08/20/16 12:43 08/20/16 12:43 08/20/16 12:43 Intake & Output 08/19/16 08/20/16 08/21/16 06:59 06:59 06:59 Intake Total 300 600 Balance 300 600 Weight 68.5 kg - Lochia Lochia Amount: Scant < 10 ml Lochia Color: Rubra/Red - Abdomen Description: Tender, Soft Hernia Present: No Fundal Description: Firm, Midline Fundal Height: u/u - u/2 Objective-Diagnostic Laboratory: 08/20/16 07:20 08/19/16 07:02 08/20/16 08/20/16 07:20 07:20 WBC 12.2 H RBC 3.60 L Hgb 11.3 L Hct 33.3 L MCV 92 MCH 31.4 MCHC 34.0 RDW 14.6 H Plt Count 174 Blood Type A NEGATIVE Assessment and Plan(PN) - Assessment and Plan (1) Vaginal delivery Is this a current diagnosis for this admission?: Yes - Time Spent with Patient Time with patient: Less than 15 minutes Medications reviewed and adjusted accordingly: Yes - Disposition Anticipated Discharge: Home Within: within 24 hours
[2016-08-21] MEDS: IBUPROFEN 800 MG TABLET PO SCH ×2 (06:19→13:41)
[2016-08-21 08:47] VITALS: BP 123/77
[2016-08-21] MEDS: FERROUS SULFATE 325 MG TABLET PO SCH (09:54)
[2016-08-21] MEDS: PRENATAL VITAMIN W-O CA NO5/FE FUMARATE/FA CAPSULE PO SCH (09:54)
[2016-08-21] MEDS: SENNOSIDES/DOCUSATE 8.6-50 MG 1 EACH TABLET PO SCH (09:54)
[2016-08-21] MEDS: DOCUSATE SODIUM 100 MG CAPSULE PO SCH (09:54)
--- NOTE | 2016-08-21 10:19 | PDOC PROGRESS REPORT ---
Subjective-OB Subjective: Post Delivery Day: 36 year old. Denies any needs at this time. Ready to go home. Physical Exam (OB) Vital Signs: Temp Pulse Resp BP Pulse Ox 98.3 F 66 16 123/77 100 08/21/16 08:04 08/21/16 08:04 08/21/16 08:04 08/21/16 08:04 08/21/16 08:04 Intake & Output 08/20/16 08/21/16 08/22/16 06:59 06:59 06:59 Intake Total 300 900 Balance 300 900 Weight 68.5 kg - Lochia Lochia Amount: Scant < 10 ml Lochia Color: Rubra/Red - Abdomen Description: Soft, Round Hernia Present: No Bowel Sounds: Normoactive Flatus Presence: Present Stool: No Fundal Description: Firm, Midline Fundal Height: u/3 - u/4 Objective-Diagnostic Laboratory: 08/20/16 07:20 08/19/16 07:02 08/20/16 07:20 Blood Type A NEGATIVE Assessment and Plan(PN) - Time Spent with Patient Medications reviewed and adjusted accordingly: Yes - Disposition Anticipated Discharge: Home
--- NOTE | 2016-08-21 10:26 | PDOC DISCHARGE SUMMARY ---
Final Diagnosis Discharge Date: 08/21/16 - Final Diagnosis (1) AMA (advanced maternal age) multigravida 35+ Is this a current diagnosis for this admission?: Yes (2) Chronic hypertension during Is this a current diagnosis for this admission?: Yes (3) Is this a current diagnosis for this admission?: Yes (4) Vaginal delivery Is this a current diagnosis for this admission?: Yes Discharge Data - Discharge Medication Home Medications: Methyldopa [Aldomet 250 mg Tablet] 250 mg PO DAILY 08/19/16 Vit/Iron Fumarate/FA [ Tablet] 1 tab PO DAILY 08/19/16 Docusate Sodium [Colace 100 mg Capsule] 100 mg PO BID #30 capsule 08/21/16 Gestational Age: 39.5 wks Reason(s) for Admission: Induction of Labor, Medical Complications, Advanced Maternal Age Procedures: Ultrasound Intrapartum Procedure(s): Spontaneous Vaginal Delivery Complication(s): Laceration-Vaginal Laceration-Degree: 2nd - Data Baby 1 Female at 1 minute: 9 at 5 minutes: 9 Weight: 3.544 kg Home with Mother: Yes Complications: No - Diagnosis Test Laboratory: Temp Pulse Resp BP Pulse Ox 98.3 F 66 16 123/77 100 08/21/16 08:04 08/21/16 08:04 08/21/16 08:04 08/21/16 08:04 08/21/16 08:04 08/19/16 08/19/16 08/20/16 07:02 07:35 07:20 RBC 4.16 3.60 L Hgb 13.0 11.3 L Hct 38.5 33.3 L Urine Opiates Screen NEGATIVE - Discharge information/Instructions Discharge Activity: Activity As Tolerated, Balance Activity w/Rest, No Lifting Over 10 Pounds, Pelvic Rest, Slowly Increase Activity, No tub bath Discharge Diet: Regular Disposition: HOME, SELF-CARE Follow up with: [facility] in: 4, Weeks
--- NOTE | 2016-08-25 13:02 | Delivery Summary ---
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 CHTN initiate induction labor protocol AROM clear clear continue pitocin per protocol pain management prn anticipate DELIVERY PERSONNEL Delivery Doctor:: Maureen Wood CNM Nurse Systems Program Manager Certified:: Maureen Wood CNM Labor and Delivery Nurse:: BERTRAM Vega Labor and Delivery Nurse:: BERTRAM Ureña Donor Relations Coordinator/MEAL GRINDER TENDER: Roxann Phipps CNA II Additional Personnel: : Adryan Alba RN MATERNAL INFORMATION Delivery Anesthesia: Epidural Medications After Delivery: Pitocin Bolus-Please Comment Meds After Delivery Comment: Pitocin 20 units in 1000 ml nss open for bolus Estimated Blood Loss (ml): 350 Maternal Complications: Other Other Maternal Complications: CHTN Provider Comments: delivery of viable female bulb suctioned on perineum nuchal x 1 easily reduced CLARE to abdomen tactile stimulation elicits spont cry cord clamped and cut by sister of baby cord blood obtained 3vc placenta delivered flores fashion EBL 350 cc 2nd degree vaginal laceration repaired under epidural hemostasis achieved LABOR SUMMARY EDC: 08/21/2016 00:00 No. Babies in Womb: 1 Attempted: No Labor Anesthesia: Epidural LABOR INFORMATION Reason for Induction: Chronic Hypertension Onset of Labor: 08/19/2016 13:00 Complete Dilatation: 08/19/2016 14:24 Oxytocin: Induction Group B Beta Strep: Negative Antibiotics # of Doses: n/a Steroids Given: None Reason Steroids Not Administered: Not Applicable MEMBRANES Membranes Rupture Method: Spontaneous Rupture of Membranes: 08/19/2016 08:44 Length of Rupture (hr): 5.98 Amniotic Fluid Color: Clear Amniotic Fluid Amount: Moderate Amniotic Fluid Odor: Normal STAGES OF LABOR Stage 1 hr: 1 Stage 1 min: 24 Stage 2 hr: 0 Stage 2 min: 19 Stage 3 hr: 0 Stage 3 min: 3 Total Time in Labor hr: 1 Total Time in Labor min: 46 VAGINAL DELIVERY Episiotomy: None Laceration Extension: Second Degree Laceration Type: Vaginal Laceration Repair: Yes Laceration Repair Note: repaired under epidural 2.0 and 3.0 chromic gut Sponge Count Correct: N/A Sharps Count Correct: N/A CSECTION DELIVERY Primary Indication: N/A Secondary Indication: N/A CSection Incidence: N/A Labor: N/A Elective: N/A CSection Incision: N/A BABY A INFORMATION Delivery Date/Time: 08/19/2016 14:43 Method of Delivery: Vaginal Born in Route : No : N/A Forceps: N/A Vacuum Extraction: N/A Shoulder Dystocia : No PRESENTATION/POSITION BABY A Presentation: Cephalic Cephalic Presentation: Vertex Vertex Position: Right Occipital Anterior Breech Presentation: N/A PLACENTA INFORMATION BABY A Placenta Delivery Time : 08/19/2016 14:46 Placenta Method of Delivery: Spontaneous Placenta Status: Delivered SCORES BABY A Heart Rate 1 min: >100 bpm Resp Effort 1 min: Good Cry Reflex Irritability 1 min: Cough or Sneeze or Pulls Away Muscle Tone 1 min: Active Motion Color 1 min: Body [place], Extremities Blue Resuscitation Effort 1 min: Tactile Stimulation SCORE 1 MIN: 9 Heart Rate 5 min: >100 bpm Resp Effort 5 min: Good Cry Reflex Irritability 5 min: Cough or Sneeze or Pulls Away Muscle Tone 5 min: Active Motion Color 5 min: Body [place], Extremities Blue Resuscitation Effort 5 min: Tactile Stimulation SCORE 5 MIN: 9 INFORMATION BABY A Gestational Age at Delivery: 39.5 Gestational Status: Full Term- 39- 40.6 Weeks Outcome : Liveborn Condition : Stable Sex: Female IDENTIFICATION BABY A Verification Date/Time: 08/19/2016 14:58 ID Band Number: [id number] Mother's Name Verified: Yes RN Verifying : PATRICIA KONG RN Additional Verifying Personnel: Angélica NAVARRETE RN WEIGHT/LENGTH BABY A Birthweight (gm): 3530 Infant Weight (lb): 7 Weight (oz): 13 Infant Length (in): 20.50 Length (cm): 52.07 CORD INFORMATION BABY A No. Cord Vessels: 3 Nuchal Cord : Around Neck x1, Loose Cord Blood Taken: Yes-For Eval (Mom's Blood Type - or O+) Suction: None ASSESSMENT BABY A Infant Complications: None Physical Findings at Delivery: Within Normal Limits Respirations: Appears Normal Skin to Skin: Yes Skin to Skin Time (min): 60 Farm Service Adviser/ALS Called : No Infant Care By: BERTRAM BRITO Transferred To: Remains with Mother BABY B INFORMATION : N/A SIGNATURES Assignment: Lakeshia Oneal MD Signature: with User ID: Rao : with User ID: Rao
--- NOTE | 2016-08-26 06:01 | L&D Current Admission ---
Current Admit Datetime Report Generated by CPN: 08/26/2016 06:00 ADMISSION INFORMATION Current Admit Date/Time: 08/19/2016 07:30 (08/19/2016 08:21:BERTRAM Vega) Reason for Admission: Induction of Labor (08/19/2016 08:21:BERTRAM Vega) Chief Complaint: Scheduled Induction of Labor (08/19/2016 07:30:BERTRAM Vega) EGA per Dates: 39.5 (08/19/2016 08:21:QS system process) Method of Arrival: Ambulatory (08/19/2016 08:21:BERTRAM Vega) Reason for Induction: Chronic Hypertension (08/19/2016 08:21:BERTRAM Vega) Records Available: Yes (08/19/2016 08:21:BERTRAM Vega) General Admission Information: Reviewed; Updated; Confirmed (08/19/2016 08:21:BERTRAM Vega) General Admission Reviewed By: Kym BURDEN (08/19/2016 08:21:BERTRAM Vega) BELONGINGS/ADVANCED DIRECTIVES Other Belongings: See [facility] Valuables consent (08/19/2016 08:21:BERTRAM Vega) Disposition of Belongings: Kept with Patient (08/19/2016 08:21:BERTRAM Vega) Advance Direct for Healthcare: No, and Wants No Information (08/19/2016 08:21:BERTRAM Vega) Durable Power of Contact Lens Technician: No (08/19/2016 08:21:BERTRAM Vega) Living Will: No (08/19/2016 08:21:BERTRAM Vega) Organ Donor: No (08/19/2016 08:21:BERTRAM Vega) Pt Rights Information Given: Yes (08/19/2016 08:21:BERTRAM Vega) Pt Understands Pt Rights: Yes (08/19/2016 08:21:BERTRAM Vega) LEARNING ASSESSMENT Knowledge Level: Understands L_D Process; Understands Care Activities; Understands Diagnosis (08/19/2016 08:21:BERTRAM Vega) Barriers to Learning: None (08/19/2016 08:21:BERTRAM Vega) Learning Readiness: Motivated (08/19/2016 08:21:BERTRAM Vega) Learns Best By: 1 to 1 Instruction; Demonstration (08/19/2016 08:21:BERTRAM Vega) Learning Needs: Labor and Delivery Process; Pain Management; Symptoms to Report; Treatment Plan; Medication; Diagnosis; Nutrition; Equipment; Community Resources; Other (08/19/2016 08:21:BERTRAM Vega) Learning Assessment Comments: (08/19/2016 08:21:BERTRAM Vega) DOMESTIC VIOLANCE SCREENING Dom Viol Threatened/Hurt: No (08/19/2016 08:21:BERTRAM Vega) Hx of Abuse/Neglect past 2yrs: No (08/19/2016 08:21:BERTRAM Vega) Feel Unsafe Going Home: No (08/19/2016 08:21:BERTRAM Vega) Addt'l Observ Indicating Abuse: No (08/19/2016 08:21:BERTRAM Vega) Reason Unable to Complete Screen: N/A, Screen Completed (08/19/2016 08:21:BERTRAM Vega) Considered Personal Harm/Suicide: No (08/19/2016 08:21:BERTRAM Vega) NUTRITIONAL/FUNCTIONAL SCREENING Problem with Appetite >5 Days: No (08/19/2016 08:21:BERTRAM Vega) Chew/Swallow Difficulties: No (08/19/2016 08:21:BERTRAM Vega) Inappropriate Wt Gain/Loss: No (08/19/2016 08:21:BERTRAM Vega) Presence Skin Breakdown/Ulcer: No (08/19/2016 08:21:BERTRAM Vega) Special Diet: No (08/19/2016 08:21:BERTRAM Vega) Pt Requests Honey Blender Visit: No (08/19/2016 08:21:BERTRAM Vega) Hx of Any of the Following?: N/A (08/19/2016 08:21:BERTRAM Vega) New Diagnosis of: N/A (08/19/2016 08:21:BERTRAM Vega) Requires Assist w/Ambulation: No (08/19/2016 08:21:BERTRAM Vega) Uses Assist Device to Ambulate: No (08/19/2016 08:21:BERTRAM Vega) Pt Requires Help w/ADL's: No (08/19/2016 08:21:BERTRAM Vega)
--- NOTE | 2016-08-26 06:01 | L&D General Admission ---
General Admit Datetime Report Generated by CPN: 08/26/2016 06:00 INFORMATION Patient Age: 36 (08/19/2016 06:39:QS system process) EDC: 08/21/2016 00:00 (08/19/2016 06:43:Annabel Degroot RN) : 2 (08/19/2016 06:43:Annabel Degroot RN) Para: 1 (08/19/2016 06:43:Annabel Degroot RN) Term: 1 (08/19/2016 06:43:Annabel Degroot RN) : 0 (08/19/2016 06:43:Annabel Degroot RN) Spontaneous Abortions: 0 (08/19/2016 06:43:Annabel Degroot RN) Induced Abortions: 0 (08/19/2016 06:43:Annabel Degroot RN) Livin (08/19/2016 06:43:Annabel Degroot RN) Cesareans: 0 (08/19/2016 06:43:Annabel Degroot RN) VBACs: 0 (08/19/2016 06:43:Annabel Degroot RN) Ectopic: 0 (08/19/2016 06:43:Annabel Degroot RN) Multiple Births: 0 (08/19/2016 06:43:Annabel Degroot RN) Baby, Number in Womb: 1 (08/19/2016 06:43:Annabel Degroot RN) CARE Primary Mold Sheet Cleaner: [facility] (08/19/2016 06:43:Annabel Degroot RN) Month of 1st Visit: December (08/19/2016 06:43:BERTRAM Vega) Adequate Care: Yes (08/19/2016 06:43:BERTRAM Vega) Prepregnancy Weight (lb): 120 (08/19/2016 06:43:BERTRAM Vega) Prepregnancy Weight (kg): 54.5 (08/19/2016 06:43:QS system process) Height (in): 61 (08/21/2016 10:26:QS system process) ALLERGIES Medication Allergy: No (08/19/2016 06:43:Kym Camp, RNC) Medication Allergies: No Known Allergies (08/19/2016) (08/19/2016 06:56:QS system process) Latex Allergy: No Latex Allergies (08/19/2016 06:43:Kym Camp, RNC) COMMUNICATION Primary Language: Croatian (08/19/2016 06:43:Kym Camp, RNC) Medical Tx Preferred Language: Croatian (08/19/2016 06:43:Kym Camp, RNC) Communication Barrier(s): None (08/19/2016 06:43:Kym Camp, RNC) DEMOGRAPHICS Address: [address] [place] [id number] (08/19/2016 06:39:QS system process) Zipcode: [address] (08/19/2016 06:39:QS system process) Home (08/19/2016 06:39:QS system process) SSN: [id number] (08/19/2016 06:39:QS system process) Next of Kin Name: SALIMA RICHARDSON (08/19/2016 06:39:QS system process) Next of Kin (08/19/2016 06:39:QS system process) Next of Kin Relationship: OR (08/19/2016 06:39:QS system process) Date of : 1980 (08/19/2016 06:39:QS system process) Marital Status: (08/19/2016 06:39:QS system process) Sex: Female (08/19/2016 06:39:QS system process) Occupation: Other (08/19/2016 06:43:BERTRAM Vega) 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 [id number] (08/19/2016 06:43:BERTRAM Vega) Marijuana: No (08/19/2016 06:43:Kym Camp, RNC) Cocaine: No (08/19/2016 06:43:Kym Camp, RNC) Other Illicit Drugs: No (08/19/2016 06:43:Kym Camp, RNC) VACCINE HISTORY Influenza Vaccine: Yes (08/19/2016 06:43:Kym Camp, RNC) Influenza Date: 06-03-16 (08/19/2016 06:43:Kym Camp, RNC) Pneumococcal Vaccine: No (08/19/2016 06:43:Kym Camp, RNC) Tetanus Vaccine: Yes (08/19/2016 06:43:Kym Camp, RNC) Tetanus Date: 06-03-16 (08/19/2016 06:43:Kym Camp, RNC) Tdap Vaccine: Yes (08/19/2016 06:43:Kym Camp, RNC) Tdap Date: 06-03-16 (08/19/2016 06:43:Kym Camp, RNC) Hepatitis B Vaccine: Uncertain (08/19/2016 06:43:Kym Camp, RNC) Roof Tiler: [facility] (08/19/2016 06:43:BERTRAM Vega) Feeding Preference: Breast (08/19/2016 06:43:BERTRAM Vega) Benefit of Breast Feed Discussed: Yes (08/19/2016 06:43:BERTRAM Vega) Circumcision: N/A (08/19/2016 06:43:BERTRAM Vega) Classes Attended: No (08/19/2016 06:43:BERTRAM Vega) Tubal Ligation: No (08/19/2016 06:43:BERTRAM Vega) Tubal Authorization Signed: N/A (08/19/2016 06:43:BERTRAM Vega) Consent: N/A (08/19/2016 06:43:BERTRAM Vega) Consent Signed: N/A (08/19/2016 06:43:BERTRAM Vega) Pain Management Plans: Epidural (08/19/2016 06:43:BERTRAM Vega) Plans for Labor and Delivery: None (08/19/2016 06:43:BERTRAM Vega) Support Person: Manolo Moya (08/19/2016 06:43:BERTRAM Vega) Support Person Relationship: (08/19/2016 06:43:BERTRAM Vega) Cultural/Spritual Practice: No (08/19/2016 06:43:BERTRAM Vega) Spir/Cult Dietary Needs: No (08/19/2016 06:43:BERTRAM Vega) LIVING SITUATION/DISCHARGE PLAN Living Arrangements: House (08/19/2016 06:43:BERTRAM Vega) Adequate Access to:: Electric; Heat; Refrigeration; Plumbing/Running water; Phone; Transportation (08/19/2016 06:43:BERTRAM Vega) WIC Program: No (08/19/2016 06:43:BERTRAM Vega) Discharge Blower Mechanic Person: Manolo Moya (08/19/2016 06:43:BERTRAM Vega) Person to Help after Discharge: Manolo Nita (08/19/2016 06:43:BERTRAM Vega) Currently Using Commun Resources: No (08/19/2016 06:43:BERTRAM Vega) Outside Agency/Rn Ed: No (08/19/2016 06:43:BERTRAM Vega) Car Seat for Discharge: Yes (08/19/2016 06:43:BERTRAM Vega) Adoption Requested: No (08/19/2016 06:43:BERTRAM Vega) Pt Contact w/infant Post : N/A (08/19/2016 06:43:BERTRAM Vega) LABS Blood Type: A Negative (08/19/2016 06:43:Annabel Degroot RN) Antibody Screen: Negative (08/19/2016 06:43:Annabel Degroot RN) Rho(G) this : Yes (08/19/2016 06:43:Annabel Degroot RN) Date Rho(G) Given: 06/03/2016 (08/19/2016 06:43:Annabel Degroot RN) Hemoglobin: 11.3 L (08/20/2016 07:20:QS system process) Hematocrit: 33.3 L (08/20/2016 07:20:QS system process) MCV: 92 (08/20/2016 07:20:QS system process) Group Beta Strep: Negative (08/19/2016 06:43:Annabel Degroot RN) Gonorrhea: Negative (08/19/2016 06:43:Annabel Degroot RN) Chlamydia: Negative (08/19/2016 06:43:Annabel Degroot RN) RPR/VDRL: Nonreactive (08/19/2016 06:43:Annabel Degroot RN) HIV Results: Negative (08/19/2016 06:43:Annabel Degroot RN) Hepatitis B: Negative (08/19/2016 06:43:Annabel Degroot RN) Rubella: Immune (08/19/2016 06:43:Annabel Degroot RN) OB/PREVIOUS HISTORY Previous Procedures: Ultrasound; NST (08/19/2016 06:43:BERTRAM Vega) Current Procedures: Ultrasound; NST (08/19/2016 06:43:BERTRAM Vega) History of Previous : No (08/19/2016 06:43:BERTRAM Vega) History of Gestational Diabetes: No (08/19/2016 06:43:BERTRAM Vega) History of PIH: Yes (08/19/2016 06:43:BERTRAM Vega) History of Incompetent Cervix: No (08/19/2016 06:43:BERTRAM Vega) History of Placenta Previa/Abrup: No (08/19/2016 06:43:Kym Young [facility]) History of Macrosomia: No (08/19/2016 06:43:Kym Young [facility]) History of IUGR: No (08/19/2016 06:43:Kym Young [facility]) History of Hemorrhage: No (08/19/2016 06:43:Kym Young [facility]) History of Loss/Stillborn: No (08/19/2016 06:43:Kym Young [facility]) History of : No (08/19/2016 06:43:Kym Young [facility]) History of D (Rh) Sensitization: No (08/19/2016 06:43:Kym Young [facility]) History Recurrent Loss/Stillborn: No (08/19/2016 06:43:Kym Young [facility]) History Depression/PP Depression: No (08/19/2016 06:43:Kym Young [facility]) History of Uterine Anomaly/AVA: No (08/19/2016 06:43:Kym Young [facility]) History of Infertility: No (08/19/2016 06:43:Kym Young [facility]) History of ART Treatment: No (08/19/2016 06:43:Kym Young [facility]) History of AVA: No (08/19/2016 06:43:Kym oYung [facility]) Comments Obstetrical History: Denies complications, CHTN (08/19/2016 06:43:Kym Young [facility]) MEDICAL HISTORY Med Hx Diabetes: No (08/19/2016 06:43:Kym Young [facility]) Med Hx Hypertension: Yes (08/19/2016 06:43:BERTRAM Vega) Med Hx Heart Disease: No (08/19/2016 06:43:BERTRAM Vega) Med Hx Autoimmune Disorder: No (08/19/2016 06:43:BERTRAM Vega) Med Hx Kidney Disease/UTI: No (08/19/2016 06:43:BERTRAM Vega) Med Hx Neurologic/Epilepsy: No (08/19/2016 06:43:BERTRAM Vega) Med Hx Psychiatric Disorders: No (08/19/2016 06:43:BERTRAM Vega) Med Hx Hepatitis/Liver Disease: No (08/19/2016 06:43:BERTRAM Vega) Med Hx Varicosities/Phlebitis: No (08/19/2016 06:43:BERTRAM Vega) Med Hx Thyroid Dysfunction: No (08/19/2016 06:43:BERTRAM Vega) Med Hx Trauma/Violence: No (08/19/2016 06:43:BERTRAM Vega) Med Hx Blood Transfusion: No (08/19/2016 06:43:BERTRAM Vega) Med Hx Pulmonary (Asthma,TB): No (08/19/2016 06:43:BERTRAM Vega) Med Hx Breast: No (08/19/2016 06:43:BERTRAM Vega) Med Hx BUTCHER ALL ROUND Surgery: No (08/19/2016 06:43:BERTRAM Vega) Med Hx Hospitalization/Surgery: Yes (08/19/2016 06:43:BERTRAM Vega) Med Hx Anesthetic Complications: No (08/19/2016 06:43:BERTRAM Vega) Med Hx Abnormal Pap Smear: No (08/19/2016 06:43:BERTRAM Vega) Other Medical Diseases: No (08/19/2016 06:43:BERTRAM Vega) Med Hx Significant Family Hx: No (08/19/2016 06:43:BERTRAM Vega) Details of Med/Surg Hx: CHTN on meds x 3 years (08/19/2016 06:43:BERTRAM Vega) INFECTIOUS HISTORY Inf Hx Gonorrhea: No (08/19/2016 06:43:[facility]) Inf Hx Chlamydia: No (08/19/2016 06:43:[facility]) Inf Hx Syphilis: No (08/19/2016 06:43:[facility]) Inf Hx HIV/AIDS: No (08/19/2016 06:43:[facility]) Inf Hx Human Papilloma Virus: No (08/19/2016 06:43:[facility]) Inf Hx Pt/Partner Genital Herpes: No (08/19/2016 06:43:[facility]) Inf Hx Tuberculosis/Exposure: No (08/19/2016 06:43:[facility]) Inf Hx Hepatitis B,C: No (08/19/2016 06:43:[facility]) Inf Hx Rash or Viral Illness: No (08/19/2016 06:43:[facility]) GENETIC HISTORY Gen Hx Age >=35 at [facility]: No (08/19/2016 06:43:[facility], [facility]) Gen Hx Thalassemia: No (08/19/2016 06:43:[facility]) Gen Hx Congenital Heart Defect: No (08/19/2016 06:43:Kym Young [facility]) Gen Hx Neural Tube Defect: No (08/19/2016 06:43:Kym Young [facility]) Gen Hx Down's Syndrome: Yes (08/19/2016 06:43:Kym Young [facility]) Gen Hx Isaac-Sachs: No (08/19/2016 06:43:Kym Young [facility]) Gen Hx Dorie: No (08/19/2016 06:43:Kym Young [facility]) Gen Hx Familial Dysautonomia: No (08/19/2016 06:43:Kym Young [facility]) Gen Hx Sickle Cell Disease/Trait: No (08/19/2016 06:43:Kym Young [facility]) Gen Hx Hemophilia/Blood Disorder: No (08/19/2016 06:43:Kym Young [facility]) Gen Hx Muscular Dystrophy: No (08/19/2016 06:43:Kym Young [facility]) Gen Hx Cystic Fibrosis: No (08/19/2016 06:43:Kym Young [facility]) Gen Hx Huntingtons Chorea: No (08/19/2016 06:43:yKm Young [facility]) Gen Hx Mental Retardation/Autism: No (08/19/2016 06:43:Kym Young [facility]) Gen Hx Tested for Fragile X: No (08/19/2016 06:43:Kym Young [facility]) Gen Hx Other Inher/Chromosomal: No (08/19/2016 06:43:Kym Young [facility]) Gen Hx Maternal Metabolic DO: No (08/19/2016 06:43:Kym Young [facility]) Gen Hx Pt Father or FOB Defect: No (08/19/2016 06:43:Kym Young [facility]) Gen Hx Other Genetic History: No (08/19/2016 06:43:Kym Young [facility]) Gen Hx Drugs/Meds since LMP: No (08/19/2016 06:43:Kym Young [facility]) Details of Genetic History: Niece has Mosaic Down's Syndrome (08/19/2016 06:43:Kym Young [facility])
== END 2016-08-21 16:15 | disposition home or self-care (01) | DRG 774 ==
LOC: LR 06:38 → 2S 17:03
PROVIDERS: ADMIT Obstetrics & Gynecology; ATTEND Obstetrics & Gynecology
PROC: 10E0XZZ Delivery of Products of Conception, External Approach (ICD-10-PCS; principal; 2016-08-19)
PROC: 0KQM0ZZ Repair Perineum Muscle, Open Approach (ICD-10-PCS; 2016-08-19)
PROC: 4A1HXCZ Monitoring of Products of Conception, Cardiac Rate, External Approach (ICD-10-PCS; 2016-08-19)
PROC: 3E0234Z Introduction of Serum, Toxoid and Vaccine into Muscle, Percutaneous Approach (ICD-10-PCS; 2016-08-20)
DX: O10.92 Unspecified pre-existing hypertension complicating childbirth (principal); O98.32 Other infections with a predominantly sexual mode of transmission complicating childbirth; O69.81X0 Labor and delivery complicated by cord around neck, without compression, not applicable or unspecified; O26.893 Other specified pregnancy related conditions, third trimester; O70.1 Second degree perineal laceration during delivery; Z67.11 Type A blood, Rh negative; Z3A.39 39 weeks gestation of pregnancy; Z37.0 Single live birth; A60.00 Herpesviral infection of urogenital system, unspecified; Z79.899 Other long term (current) drug therapy
CPT/HCPCS: 36415; 80053; 80307; 81005; 83615; 84550; 85025; 85027; 85461; 86592; 86850; 86870; 86900; 86901; 94760; J2370; J2590; J2790; J3010; J3490

== ENCOUNTER 2019-05-05 11:39 | Emergency (ER) | payer BC, OTHER ==
--- NOTE | 2019-05-05 12:08 | ER Document Report ---
ED Medical Screen (RME) - General Chief Complaint: Hypertension Stated Complaint: HIGH BLOOD PRESSURE/ Time Seen by Provider: 05/05/19 12:01 Primary Care Provider: MATA KOHLER MD [Primary Care Provider] - Follow up as needed Notes: Patient is a 39-year-old female G3, P2 who presents to emergency department with chief complaint of high blood pressure. Patient reports she went to her [employer] [facility] this morning and was sent over here to the emergency department for evaluation of her elevated blood pressure. Blood pressure in the 180s systolic. Patient reports she does have a mild frontal headache. Patient denies nausea or vomiting. Patient reports she has had high blood pressure before during her pregnancies. Patient not currently on any medication. Patient denies chest pain or shortness of breath. TRAVEL OUTSIDE OF THE [place] IN LAST 30 DAYS: No - Related Data Allergies/Adverse Reactions: No Known Allergies Allergy (Verified 05/05/19 11:57) Past Medical History - Social History Chew tobacco use (# tins/day): No Frequency of alcohol use: None Drug Abuse: None Physical Exam - Vital signs Vitals: Temp Pulse Resp BP Pulse Ox 98.1 F 106 H 18 185/93 H 100 05/05/19 11:40 05/05/19 11:40 05/05/19 11:40 05/05/19 11:40 05/05/19 11:40 - Cardiovascular Rhythm: Regular Heart sounds: Normal auscultation, S1 appreciated Course - Re-evaluation Re-evalutation: 05/05/19 12:49 I have greeted and performed a rapid initial assessment of this patient. A comprehensive ED assessment and evaluation of the patient, analysis of test results and completion of the medical decision making process will be conducted by additional ED providers. - Vital Signs Vital signs: Temp Pulse Resp BP Pulse Ox 98.1 F 106 H 18 185/93 H 100 05/05/19 11:40 05/05/19 11:40 05/05/19 11:40 05/05/19 11:40 05/05/19 11:40 - Laboratory Result Diagrams: 05/05/19 12:28 05/05/19 12:28 Doctor's Discharge - Discharge Referrals: MATA KOHLER MD [Primary Care Provider] - Follow up as needed
[2019-05-05 12:44] LABS: ABSOLUTE EOSINOPHILS # (AUTO) 0.1 10^3/uL (0.0-0.6); ABSOLUTE LYMPHOCYTES (AUTO) 1.6 10^3/uL (0.5-4.7); ABSOLUTE MONOCYTES (AUTO) 0.4 10^3/uL (0.1-1.4); ABSOLUTE NEUT (AUTO) 4.4 10^3/uL (1.7-8.2); BASOPHILS % (AUTO) 0.4 % (0-2); HEMATOCRIT 42.2 % (36.0-47.0); HEMOGLOBIN 14.4 g/dL (12.0-15.5); LYMPHOCYTES % (AUTO) 24.5 % (13-45); MEAN CORPUSCULAR HEMOGLOBIN 30.9 pg (27.0-33.4); MEAN CORPUSCULAR HGB CONC 34.2 g/dL (32.0-36.0); MEAN CORPUSCULAR VOLUME 90 fl (80-97); MONOCYTES % (AUTO) 5.5 % (3-13); PLATELET COUNT 234 10^3/uL (150-450); RED BLOOD COUNT 4.67 10^6/uL (3.72-5.28); RED CELL DISTRIBUTION WIDTH 13.7 % (11.5-14.0); SEGMENTED NEUTROPHILS % (AUTO) 68.6 % (42-78); TOTAL CELLS COUNTED % (AUTO) 100 %; WHITE BLOOD COUNT 6.4 10^3/uL (4.0-10.5)
[2019-05-05 12:54] LABS: APPEARANCE,URINE CLEAR; BILIRUBIN,URINE NEGATIVE (NEGATIVE); COLOR,URINE STRAW; GLUCOSE, URINE NEGATIVE (NEGATIVE); KETONES,URINE NEGATIVE (NEGATIVE); LEUKOCYTE ESTERASE,URINE NEGATIVE (NEGATIVE); NITRITE,URINE NEGATIVE (NEGATIVE); PROTEIN,URINE NEGATIVE (NEGATIVE); URINE SPECIFIC GRAVITY 1.006; UROBILINOGEN,URINE NEGATIVE mg/dL (<2.0)
[2019-05-05 13:07] LABS: ALBUMIN 4.6 g/dL (3.5-5.0); ALKALINE PHOSPHATASE 46 U/L (38-126); ANION GAP 10 (5-19); ASPARTATE AMINO TRANSFERASE 35 U/L (14-36); BILIRUBIN,TOTAL 1.3 mg/dL (0.2-1.3); BLOOD UREA NITROGEN 11 mg/dL (7-20); CALCIUM 9.4 mg/dL (8.4-10.2); CARBON DIOXIDE 25 mmol/L (22-30); CHLORIDE 102 mmol/L (98-107); GLUCOSE 91 mg/dL (75-110); POTASSIUM 3.4 mmol/L (3.6-5.0); TOTAL PROTEIN 7.7 g/dL (6.3-8.2)
--- NOTE | 2019-05-05 13:40 | ER Document Report ---
Entered by JOHN PARSON SCRIBE 05/05/19 1313 Acting as scribe for:ROSSANA GRAVES MD ED Blood Pressure Problem - General Chief Complaint: High Blood Pressure Stated Complaint: HIGH BLOOD PRESSURE/ Time Seen by Provider: 05/05/19 12:01 Primary Care Provider: MATA KOHLER MD [ACTIVE STAFF] - Follow up as needed Mode of Arrival: Ambulatory Information source: Patient Notes: Patient is a 39-year-old female who presents to the emergency department today with complaints of elevated blood pressures. Patient states that she is 5 weeks , , and she was seen at her [facility] office today and was sent here for a blood pressure of 185/93. Patient is now resting comfortably in the room and her blood pressure is 136/96 without any medical intervention. Patient states when she takes her blood pressure at home it is usually lower as she is "very calm at home". Patient states she was on 250 mg of Aldomet during her sec ond . Patient states she has had a slight headache last few days. TRAVEL OUTSIDE OF THE [place] 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 [employer] Lives with: Family Family History: Reviewed & Not Pertinent Patient has suicidal ideation: No Patient has homicidal ideation: No - Past Medical History Cardiac Medical History: Reports: Hx Hypertension - with 2nd Surgical Hx: Negative Review of Systems - Review of Systems Constitutional: No symptoms reported EENT: No symptoms reported Cardiovascular: See HPI, Other - elevated blood pressure Respiratory: No symptoms reported Gastrointestinal: No symptoms reported Genitourinary: No symptoms reported Female Genitourinary: See HPI, Musculoskeletal: No symptoms reported Skin: No symptoms reported Hematologic/Lymphatic: No symptoms reported Neurological/Psychological: See HPI, Headaches -: Yes All other systems reviewed and negative Physical Exam - Vital signs Vitals: Temp Pulse Resp BP Pulse Ox 98.1 F 106 H 18 185/93 H 100 05/05/19 11:40 05/05/19 11:40 05/05/19 11:40 05/05/19 11:40 05/05/19 11:40 - Notes Notes: Physical Exam: General: Alert, appears well. HEENT: Normocephalic. Atraumatic. PERRL. Extraocular movements intact. Oropharynx clear. Neck: Supple. Non-tender. Respiratory: No respiratory distress. Clear and equal breath sounds bilaterally. Cardiovascular: Regular rate and rhythm. Abdominal: Normal Inspection. Non-tender. No distension. Normal Bowel Sounds. Back: No gross abnormalities. Extremities: Moves all four extremities. Upper extremities: Normal inspection. Normal ROM. Lower extremities: Normal inspection. No edema. Normal ROM. Neurological: Normal cognition. AAOx4. Normal speech. Psychological: Normal affect. Normal Mood. Skin: Warm. Dry. Normal color. Course - Re-evaluation Re-evalutation: 05/05/19 13:14 The patient had a blood pressure recorded of 185/93 at triage, at this time the patient has a blood pressure 136/93 and has had no medications. She states at home her pressure is usually lower because she is more relaxed. At this time she feels quite comfortable relaxed with only mild frontal headache which is been going on for a few days. She has not tried taking anything for that headache. With her second 2 years ago, she was taking Aldomet 250 mg once daily, she states at work it controlled her pressure well, but at home her pressure would run a little bit low at that dose. We will start her on Aldomet 125 daily for now and she will check her pressures at home at least twice daily. She understands that if it brings her pressure down too low she can break them in half, otherwise she likely will need to increase the dose as she progresses in her . - Vital Signs Vital signs: Temp Pulse Resp BP Pulse Ox 98.2 F 106 H 16 132/84 H 100 05/05/19 13:42 05/05/19 11:40 05/05/19 13:42 05/05/19 13:42 05/05/19 13:42 - Laboratory Result Diagrams: 05/05/19 12:28 05/05/19 12:28 Laboratory results interpreted by me: 05/05/19 12:28 Potassium 3.4 L Beta HCG, Quant 56566.00 H Discharge - Discharge Clinical Impression: High blood pressure affecting in first trimester, antepartum Condition: Stable Disposition: HOME, SELF-CARE Additional Instructions: Take the medication as prescribed for your elevated blood pressure. If you find that your blood pressure is running a little too low, break the tablets in half and take half the prescribed dosage. Be sure to check your blood pressure at least twice daily. Take Tylenol for your headache. Follow-up with your [facility] doctor next week for recheck if there are any concerns about your blood pressure, or if the headaches do not improve. RETURN TO THE EMERGENCY ROOM IF ANY NEW OR WORSENING SYMPTOMS. Prescriptions: Methyldopa [Aldomet 250 mg Tablet] 125 mg PO Q12 #60 tablet Referrals: MATA KOHLER MD [ACTIVE STAFF] - Follow up as needed Scribe Attestation: 05/05/19 13:15 I personally performed the services described in the documentation, reviewed and edited the documentation which was dictated to the scribe in my presence, and it accurately records my words and actions. I personally performed the services described in the documentation, reviewed and edited the documentation which was dictated to the scribe in my presence, and it accurately records my words and actions.
[2019-05-05 13:47] VITALS: BP 132/84
== END 2019-05-05 13:47 | disposition home or self-care (01) ==
LOC: ER 11:39
DX: O16.1 Unspecified maternal hypertension, first trimester (principal); Z3A.01 Less than 8 weeks gestation of pregnancy
CPT/HCPCS: 36415; 80053; 81001; 84702; 85025

== ENCOUNTER → 2019-05-13 | Outpatient (CLI) | payer BC | LOC: OD 09:50 | PROVIDERS: ATTEND Obstetrics & Gynecology | DX: O20.0 Threatened abortion (principal); Z3A.00 Weeks of gestation of pregnancy not specified | CPT/HCPCS: 36415; 84702 ==

== ENCOUNTER 2019-08-29 22:24 | Emergency (ER) | payer BC ==
[2019-08-29] MEDS ORDERED: ONDANSETRON 4 MG TAB.RAPDIS PO ONE (22:45)
[2019-08-29] MEDS ORDERED: NORMAL SALINE 1000 ML 1,000 ML IV ONE (22:45)
[2019-08-29] MEDS ORDERED: MORPHINE SULFATE 10 MG/ML INJ IV ONE (22:46)
--- NOTE | 2019-08-29 22:47 | ER Document Report ---
ED Medical Screen (RME) - General Chief Complaint: Arm Pain Stated Complaint: POST OP ISSUE/LEFT ARM PAIN,VOMITING Time Seen by Provider: 08/29/19 22:42 Primary Care Provider: CARLA VERGARA DO [Primary Care Provider] - Follow up as needed TRAVEL OUTSIDE OF THE [place] IN LAST 30 DAYS: No - HPI Notes: 08/29/19 22:46 Patient is a 39-year-old female who presents complaining of left breast swelling and pain after she had augmentation performed this morning. Patient states that the pain and swelling significantly started around 3 PM today. She has been having nausea and vomiting throughout this time as well. Denies drug allergies. I have treated and performed a rapid initial assessment of this patient. A comprehensive ED assessment and evaluation of the patient, analysis of test results and completion of medical decision making process will be conducted by additional ED providers. PHYSICAL EXAMINATION: GENERAL: no acute distress. A&Ox4. Answers questions appropriately. Pt does appear somewhat pale. - Related Data Allergies/Adverse Reactions: No Known Allergies Allergy (Verified 08/29/19 22:36) Past Medical History - Past Medical History Cardiac Medical History: Reports: Hx Hypertension - with 2nd Physical Exam - Vital signs Vitals: Temp Pulse Resp BP Pulse Ox 97.5 F 72 16 99/65 L 100 08/29/19 22:34 08/29/19 22:34 08/29/19 22:34 08/29/19 22:34 08/29/19 22:34 Course - Vital Signs Vital signs: Temp Pulse Resp BP Pulse Ox 97.5 F 72 16 99/65 L 100 08/29/19 22:34 08/29/19 22:34 08/29/19 22:34 08/29/19 22:34 08/29/19 22:34 Doctor's Discharge - Discharge Referrals: CARLA VERGARA DO [Primary Care Provider] - Follow up as needed
--- NOTE | 2019-08-29 23:31 | RADIOLOGY REPORT (SQ) ---
EXAM DESCRIPTION: XR CHEST 2 VIEWS COMPLETED DATE/TME: 08/29/2019 22:45 CLINICAL HISTORY: 39 years Female, left chest pain from recent breast augmentation COMPARISON: None. NUMBER OF VIEWS/TECHNIQUE: 2, Frontal, Lateral FINDINGS: Extensive soft tissue emphysema of the thoracic wall, left more than right. Adequate lung volume, clear parenchyma, normal cardiac silhouette, and intact bony thorax. IMPRESSION: Extensive soft tissue emphysema of the thoracic wall, left more than right. Differential etiologies include iatrogenic and infectious.
[2019-08-30] MEDS ORDERED: FENTANYL CITRATE INJ/PF 100 MCG/2 ML AMPUL IV ONE ×2 (00:03→03:28)
--- NOTE | 2019-08-30 00:07 | ER Document Report ---
ED General - General Chief Complaint: Post Surgical Pain Stated Complaint: POST OP ISSUE/LEFT ARM PAIN,VOMITING Time Seen by Provider: 08/29/19 22:42 Primary Care Provider: CARLA VERGARA DO [ACTIVE STAFF] - Follow up as needed Notes: Patient is a 39-year-old female that comes to the emergency department for chief complaint of postoperative pain, vomiting, lightheadedness. She states that this a.m. she had breast augmentation by Dr. Park at [facility], she states that she started having pain afterwards but the pain was not severe until about 3 PM this afternoon, she states she vomited 3 times, she felt lightheaded, she thought she was going to pass out. She states the pain is all above the left breast, into the left shoulder, and underneath the left arm. She states the area has become very swollen, significantly increased this afternoon. She states she took her Keflex, she has taken ibuprofen, she takes methyldopa for blood pressure but has no other medical history and no other medications. She denies any other complaints. TRAVEL OUTSIDE OF THE [place] IN LAST 30 DAYS: No - Related Data Allergies/Adverse Reactions: No Known Allergies Allergy (Verified 08/29/19 22:36) Past Medical History - General Information source: Patient - Social History Smoking Status: Never Smoker Chew tobacco use (# tins/day): No Frequency of alcohol use: None Drug Abuse: None Lives with: Family Family History: Reviewed & Not Pertinent Patient has suicidal ideation: No Patient has homicidal ideation: No - Past Medical History Cardiac Medical History: Reports: Hx Hypertension - with 2nd Past Surgical History: Reports: Hx Breast Surgery - Augmentation - Immunizations Immunizations up to date: Yes Hx Diphtheria, Pertussis, Tetanus Vaccination: Yes Review of Systems - Review of Systems Constitutional: See HPI EENT: No symptoms reported Cardiovascular: See HPI Respiratory: See HPI Gastrointestinal: See HPI Genitourinary: No symptoms reported Female Genitourinary: No symptoms reported Musculoskeletal: No symptoms reported Skin: See HPI Hematologic/Lymphatic: No symptoms reported Neurological/Psychological: No symptoms reported Physical Exam - Vital signs Vitals: Temp Pulse Resp BP Pulse Ox 97.5 F 72 16 99/65 L 100 08/29/19 22:34 08/29/19 22:34 08/29/19 22:34 08/29/19 22:34 08/29/19 22:34 - Notes Notes: GENERAL: Patient appears uncomfortable and slightly anxious HEAD: Normocephalic, atraumatic. EYES: Pupils equal, round, and reactive to light. Extraocular movements intact. ENT: Oral mucosa dry, tongue midline. Oropharynx unremarkable. Airway patent. Nares patent, no nasal septal hematoma, TM's intact. NECK: Full range of motion. Supple. Trachea midline. LUNGS: Clear to auscultation bilaterally, no wheezes, rales, or rhonchi. No respiratory distress. There is some faint ecchymosis over the areas adjacent to the sternum underneath both breasts, there is tenderness at the top of both breasts but no significant erythema, there is significant swelling and tenderness on the left compared to the right at the top of the breast at the chest wall. This does not extend into the chest, there is no obvious crepitus. No discharge, current bleeding, or other abnormality noted. HEART: Regular rate and rhythm. No murmur ABDOMEN: Soft, non-tender. Non-distended. Bowel sounds present in all 4 quadrants. GENITOURINARY: Deferred EXTREMITIES: Moves all 4 extremities spontaneously. No edema, normal radial and dorsalis pedis pulses bilaterally. No cyanosis. BACK: no cervical, thoracic, lumbar midline tenderness. No saddle anesthesia, normal distal neurovascular exam. Moves all extremities in full range of motion. NEUROLOGICAL: Alert and oriented x3. Normal speech. Cranial nerves II through XII grossly intact. PSYCH: Normal affect, normal mood. SKIN: Somewhat pale Course - Re-evaluation Re-evalutation: Patient slightly pale, appears very uncomfortable initially, she was given IV fluids, medicated, on reevaluation again she is comfortable and well-appearing. She does have significant swelling and tenderness mainly over the left upper breast and chest area but there is no crepitus and this does not extend up into the neck. She has no tachypnea or difficulty breathing. CBC nonspecific without low hemoglobin, chemistry nonspecific with elevated liver function test s. Patient has no abdominal symptoms now that her pain is under control. Urinalysis shows dehydration and possible infection but patient is now on Keflex. Discussed with Dr. Victoria, recommends likely CAT scan of the chest with contrast but he recommends speaking to her surgeon. I called Josseline Orozco, we waited for an extended period of time, eventually decision was made to proceed with imaging. Dr. Park did call back, he agrees with CAT scan imaging, he states that unless there is a rupture or a large hematoma that patient can be followed closely in the office in the morning. CT showing small hematoma on the right and moderate hematoma on the left but there is no large hematoma, there is no perforation, there are no acute findings otherwise except for the expected subcutaneous air. I tried to call and speak to Dr. Park again, but after an extended period of time patient is ready to leave, decision was made for her to follow-up as he recommended and she will be provided with pain medication for her symptoms which she does not have at this time. This was discussed with Dr. Victoria, he states agreement with plan with immediate followup and return precautions. Patient states understanding and agreement, provided with a copy of her CD as well. Stable and well-appearing at time of discharge. - Vital Signs Vital signs: Temp Pulse Resp BP Pulse Ox 98.4 F 72 15 135/79 H 99 08/30/19 06:00 08/29/19 22:34 08/30/19 05:31 08/30/19 05:31 08/30/19 05:31 - Laboratory Result Diagrams: 08/30/19 00:22 08/30/19 00:22 Laboratory results interpreted by me: 08/30/19 08/30/19 08/30/19 00:22 00:22 02:36 WBC 15.0 H Seg Neuts % (Manual) 87 H Band Neutrophils % 1 L Lymphocytes % (Manual) 10 L Monocytes % (Manual) 2 L Abs Neuts (Manual) 13.2 H Glucose 140 H Total Bilirubin 1.6 H AST 374 H ALT 311 H Urine Protein 100 H Urine Glucose (UA) >=500 H Urine Ketones 20 H Leukocyte Esterase Rfl MODERATE H Urine Ascorbic Acid 40 H Discharge - Discharge Clinical Impression: Post-op pain Vomiting Qualifiers: Vomiting type: unspecified Vomiting Intractability: non-intractable Nausea presence: unspecified Qualified Code(s): R11.10 - Vomiting, unspecified Condition: Stable Disposition: HOME, SELF-CARE Additional Instructions: Your CAT scan shows small amount of bleeding underneath the right implant and moderate amount of bleeding underneath the left. I did speak with Dr. Vivian alvarez. Please take a copy of your CAT scan report, take the pain medication and nausea medication as needed, continue the Keflex. Please call his office to be seen in immediate follow-up this morning. Return if you worsen including returned vomiting, severe worsening swelling or pain, or any other concerning symptoms. Prescriptions: Oxycodone HCl/Acetaminophen [Percocet 5-325 mg Tablet] 1 - 2 tab PO TID PRN #12 tablet PRN Reason: Ondansetron [Zofran Odt 4 mg Tablet] 1 - 2 tab PO Q4H PRN #15 tab.rapdis PRN Reason: For Nausea/Vomiting Referrals: CARLA VERGARA, [ACTIVE STAFF] - Follow up as needed
[2019-08-30 00:56] LABS: HEMOGLOBIN 12.3 g/dL (12.0-15.5); MEAN CORPUSCULAR HEMOGLOBIN 29.4 pg (27.0-33.4); MEAN CORPUSCULAR HGB CONC 33.1 g/dL (32.0-36.0); MEAN CORPUSCULAR VOLUME 89 fl (80-97); PLATELET COUNT 233 10^3/uL (150-450); RED BLOOD COUNT 4.18 10^6/uL (3.72-5.28); RED CELL DISTRIBUTION WIDTH 13.4 % (11.5-14.0)
[2019-08-30 01:01] LABS: ALBUMIN 4.4 g/dL (3.5-5.0); ALKALINE PHOSPHATASE 60 U/L (38-126); ANION GAP 9 (5-19); ASPARTATE AMINO TRANSFERASE 374 U/L (14-36); BILIRUBIN,TOTAL 1.6 mg/dL (0.2-1.3); BLOOD UREA NITROGEN 14 mg/dL (7-20); CALCIUM 8.8 mg/dL (8.4-10.2); CARBON DIOXIDE 23 mmol/L (22-30); CHLORIDE 106 mmol/L (98-107); GLUCOSE 140 mg/dL (75-110); POTASSIUM 4.5 mmol/L (3.6-5.0); TOTAL PROTEIN 7.3 g/dL (6.3-8.2)
[2019-08-30 01:23] LABS: ABSOLUTE LYMPHOCYTES# (MANUAL) 1.5 10^3/uL (0.5-4.7); ABSOLUTE MONOCYTES # (MANUAL) 0.3 10^3/uL (0.1-1.4); BAND NEUTROPHILS % (MANUAL) 1 % (3-5); BASOPHILS % (MANUAL) 0 % (0-2); EOSINOPHILS % (MANUAL) 0 % (0-6); LYMPHOCYTES % (MANUAL) 10 % (13-45); MONOCYTES % (MANUAL) 2 % (3-13); SEGMENTED NEUTROPHILS % (MAN) 87 % (42-78); TOTAL CELLS COUNTED 100
[2019-08-30 01:24] LABS: PLATELET COMMENT ADEQUATE
[2019-08-30 01:25] LABS: RBC MORPHOLOGY COMMENT NORMO-CYTIC/CHROMIC
[2019-08-30 03:02] LABS: APPEARANCE,URINE SLIGHTLY-CLOUDY; BILIRUBIN,URINE NEGATIVE (NEGATIVE); COLOR,URINE YELLOW; GLUCOSE, URINE >=500 mg/dL (NEGATIVE); KETONES,URINE 20 mg/dL (NEGATIVE); PROTEIN,URINE 100 mg/dL (NEGATIVE); UROBILINOGEN,URINE NEGATIVE mg/dL (<2.0)
--- NOTE | 2019-08-30 03:44 | RADIOLOGY REPORT (SQ) ---
CLINICAL HISTORY: left breast swelling/pain, postop (breast implant) COMPARISON: None. TECHNIQUE: CT CHEST WITH IV CONTRAST on 08/30/2019 2:03 AM CDT. MIPS reconstructions were generated. This exam was performed according to our departmental dose-optimization program, which includes automated exposure control, adjustment of the mA and/or kV according to patient size and/or use of iterative reconstruction technique. MIP images were generated. FINDINGS: Thoracic aorta is normal in course and caliber without aneurysm or dissection. Pulmonary arteries are adequately opacified without acute or chronic filling defects. The heart is normal in size. There is no pericardial effusion. Intrathoracic lymph nodes are not enlarged. Bilateral breast implants and been recently placed. There is extensive subcutaneous air throughout the chest wall. There is minimal amount of blood anterior to the right implant. There is more moderate amount of blood along the inferior aspect of the left implant. The implants are intact. There is no pleural effusion, pleural thickening or pneumothorax. Central airways are patent. Lungs are clear with no consolidation, mass or interstitial lung disease. There are no acute abnormalities within the limited images of the upper abdomen. There are no acute osseous findings. No suspicious bony lesions. IMPRESSION: Status post bilateral breast implant placement with small amount of right-sided and lower moderate amount of left-sided blood products inferior to the implants.
[2019-08-30] MEDS ORDERED: HYDROCODONE/ACETAMINOPHEN 5-325 MG (6 TAB/ER DISP) PO PRN (05:01)
[2019-08-30] MEDS ORDERED: ONDANSETRON ODT 4 MG TAB (6 TAB/ER DISP) PO PRN (05:01)
[2019-08-30 05:54] VITALS: BP 135/79
== END 2019-08-30 06:15 | disposition home or self-care (01) ==
LOC: ER 22:24
DX: G89.18 Other acute postprocedural pain (principal); R07.89 Other chest pain; R11.10 Vomiting, unspecified; M79.602 Pain in left arm; R42 Dizziness and giddiness
CPT/HCPCS: 96376; 99284; 96361; 96374; 36415; 83690; 84703; 85025; 80053; 81001; 71046; 71260; S0119; J3010; J7030